=== PATIENT | female | born 1985 | race Caucasian/White ===

== ENCOUNTER 2023-09-22 10:21 | Outpatient (CLI) | payer OTHER, SELFPAY ==
--- NOTE | ~2023-09-22 | MMUS_ITS ---
EXAMINATION: MM diagnostic tanner BI w [place], US breast RT limited HISTORY: Palpable lump in the upper outer quadrant of the right breast. TECHNIQUE: Craniocaudal, mediolateral, and mediolateral oblique 3-D tomosynthesis images of the breas ts were performed and synthetic 2-D images were generated. CAD analysis was submitted and interpreted . High resolution limited right breast ultrasound was performed. COMPARISON: None, baseline BREAST PARENCHYMAL COMPOSITION: There are scattered areas of fibroglandular density. FINDINGS: MAMMOGRAPHIC FINDINGS: No suspicious mass, calcification, or architectural distortion are identified to suggest malignancy. No mammographic correlate is identified for the reported palpable abnormality of concern in the right breast. ULTRASOUND: There is a 4 mm x 2 mm oval, circumscribed, parallel, hypoechoic mass in the skin of the right breast at the 10:00 location, 8 cm from the nipple which appears to demonstrate a tract to the skin surface . IMPRESSION: 1. Findings consistent with sebaceous cyst of the right breast corresponding to the palpable abnormal ity of concern. 2. Recommend routine screening mammography in one year. Continued clinical follow-up is also recommen ded. BI-RADS Category 2: Benign finding(s). Reviewed, dictated and finalized at location A. AL ASSISTANT IMPRESSION: 1. Findings consistent with sebaceous cyst of the right breast corresponding to the palpable abnormality of concern. 2. Recommend routine screening mammography in one year. Continued clinical foll ow-up is also recommended. BI-RADS Category 2: Benign finding(s).
== END 2023-09-22 10:22 | disposition home or self-care (01) ==
PROVIDERS: PCP Nurse Practitioner; Visit Provider Nurse Practitioner Obstetrics & Gynecology
DX: N63.11 Unspecified lump in the right breast, upper outer quadrant (principal)
CPT/HCPCS: 76642; 77062; 77066; G0279

== ENCOUNTER 2025-05-19 10:05 | Outpatient (CLI) | payer OTHER, SELFPAY ==
--- NOTE | ~2025-05-19 | XR_ITS ---
XR nasal bones min 3V 05/19/2025 10:32 Indication: Nose trauma Procedure: 3 views of the nasal bones Comparison: No prior studies for comparison. Findings: There is a nondisplaced fracture distal aspect of the nasal bone. No significant soft tissue abnormality. Orbits intact. Paranasal sinuses are pneumatized. Impression: 1: Nondisplaced nasal fracture. Reviewed, dictated and finalized at location O. Impression: 1: Nondisplaced nasal fracture.
--- OUTSIDE RECORDS SUMMARY | 2025-05-19 10:09 | XMS_ITS | Clinical Summary ---
Author Organization [facility] [employer] Address [address] [place] [address] Care Team Providers Care All Around Gear Machine Operator Name Role Phone KrisNathan DO Primary Care Provider [phone] Source Comments [facility],non-owned Affiliates and Associated Physician Practices is amultiple site organization consisting of ambulatory clinics and hospital sitesin [place], [place], [place] and [place]. This disclosure is being madepursuant to the Care Everywhere program and may not contain all information available regarding this patient. Last updated 18.[facility] [employer] Allergies Active Allergy Reactions Criticality Noted Date Comments Codeine Nausea and/or Vomiting Low 09/26/2014 Gluten Meal Other 02/26/2020 Autoimmune response Medications * Be aware that medications may not be up to date on this document. Alwaysverify current medications with the patient. liothyronine (CYTOMEL) 5 MCG tablet Take 1 (one) tablet by mouth once daily 5 Active levothyroxine (SYNTHROID) 50 MCG tablet Take 1 tablet by mouth daily before breakfast 90 tablet 1 1 Active Loperamide HCl (IMODIUM A-D PO)Indications :11/04 for diarrhea Reasons: 11/04 for diarrhea Active metFORMIN ER 24hr (Glucophage XR) 500 MG tablet 1 (one) tablet 2 times daily Active furosemide (Lasix) 40 MG tabletIndicati ons:swelling face/ hands Take 1 (one) tablet by mouth once daily Reasons: swelling face/ hands 120 tablet 1 2 Active azaTHIOprine (Imuran) 50 MG tabletIndicati ons:Myositis Take 100 mg in AM, 50 mg in PM. Reasons: Myositis 270 tablet 3 2 Active spironolactone (Aldactone) 100 MG tablet Take 1 (one) tablet by mouth once daily 3 Active Multiple Vitamin (MULTI-DAY VITAMINS PO) Take 1 tablet by mouth once daily Active azaTHIOprine (Imuran) 50 MG tabletIndicati ons:Inflammato ry myopathy Take 1 (one) tablet by mouth 2 times daily With food 180 tablet 3 5 Active Semaglutide (Ozempic, 0.25 or 0.5 MG/DOSE,) 2 MG/1.5ML SOPN Inject 2.5 mg subcutaneously every 7 days Active estradiol (Estrace) 0.1 MG/GM vaginal cream INSERT 1 GRAM VAGINALLY EVERY NIGHT FOR 2 WEEKS THEN INSERT VAGINALLY 2 TIMES A WEEK 5 Active benzonatate (Tessalon) 200 MG capsule 4 Active Active Problems Problem Noted Date Diagnosed Date 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 Not able to wean Lasix. Plan: 1. Increase green vegetable intake to 3 servings/daily 2. Continue Lasix right now 1. Supplementing potassium 3. 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 GCT between 26-28 weeks Assessment & Plan (05/01/2020 5:05 PM CDT): We discussed the safety profile of metformin in . Plan 1. GCT between 26-28 weeks Advanced maternal age, primigravida 02/26/2020 Overview (05/29/2020): NOB labs unremarkable--see results console cfDNA low risk--predicted male 1TM anatomy: unremarkable 2TM anatomy: S/p Flu vax Assessment & Plan (05/29/2020 5:42 PM CDT): Flu vaccine given today. At risk for hypertensive disorders of . Plan: 1. Continue aspirin for preeclampsia risk reduction 2. Detailed second trimester anatomy survey at next exam Assessment & Plan (05/01/2020 5:50 PM CDT): At risk for hypertensive disorders of . Plan: 1. Cf DNA aneuploidy screening drawn today 2. Aspirin prescribed 3. 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 IF normal, recheck in 3TM Assessment & Plan (05/01/2020 5:08 PM CDT): Plan 1. 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 On Immuran, and furosemide 40 daily for swelling of hands and feet. Was on spironolactone but stopped in anticipation of . Flare symptoms: tongue swelling, itching all over and a lot of muscle pain. Has been in remission for several years. 03/21/20 CMP: BUN 10/ Cr 0.76/ K 4.4/ ALT 31/ AST 31 ESR 26/ CK 63 / CRP 2 Assessment & Plan (05/01/2020 5:50 PM CDT): Only complaining of swelling. Baseline CMP reassuring. At risk for hypertensive disorders of . Plan 1. Acceptable to stay on azathioprine [Imuran] 2. Previously recommended to wean Lasix 3. Maintain follow up with Rheumatology 4. Serial growth every 4 weeks after 20 weeks 5. Discussed low impact water exercised Obesity 09/19/2014 Overview (06/08/2023): Body mass index (BMI) 31.0-31.9, adult;Recorded Elsewhere: No Location: [facility] Source: EHR Chronic: N Practice ID: [id number] Billable Time: 05:00:00 PM Obesity;Recorded Elsewhere: No Location: [facility] Source: EHR Chronic: N Practice ID: [id number] Billable Time: 03:15:00 PM Assessment & Plan (05/29/2020 5:41 PM CDT): Plan: 1. Encouraged continued exercise 2. 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 06/08/2023 Overview (06/08/2023): Other specified viral warts;Recorded Elsewhere: No Location: [facility] Source: EHR Chronic: N Practice ID: [id number] Billable Time: 03:00:00 PM Abnormal cervical Papanicolaou smear 06/23/2011 06/08/2023 Overview (06/08/2023): Papanicolaou smear of cervix with atypical squamous cells of undetermined significance (ASC-US);Recorded Elsewhere: No Location: [facility] Source: EHR Chronic: N Practice ID: [id number] Billable Time: 03:00:00 PM Other abnormal papanicolaou smear of cervix and cervical HPV;Recorded Elsewhere: No Location: [facility] Source: EHR Chronic: N Practice ID: [id number] Billable Time: 03:00:00 PM History of abnormal cervical Pap smear Overview (05/29/2020): WNL per pt since then ( negative 05/2019 report in media tab) 34 weeks gestation of Gestational diabetes mellitus (GDM) in [facility] Gestational hypertension, antepartum Comments Yes Resolved Problems Problem Noted Date Diagnosed Date Resolved Date BMI 28.0-28.9,adult 03/01/2020 05/01/20 20 Overview (03/01/2020): Lost 80 lb in last 2-3 years on metformin and Trulicity Pre-conception counseling 03/01/2020 Overview (03/01/2020): Multiple medications and medical dx Rheumatoid factor positive 09/26/2014 0 02/26/2020 11 weeks gestation of 06/27/2020 Encounters Date Type Department Care Team Description 05/03/2025 Orders Only [facility] - Rheumatology [address] [place] [phone] Carlos Schreiber MD Inflammatory myopathy; 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 04/26/2025 Orders Only [facility] [address] [place] [phone] Carlos Schreiber MD Inflammatory myopathy; 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 03/27/2025 3:15 PM CDT Office Visit [facility] - Ophthalmology [address] [place] [phone] Theresa Patricia MD Orbital mass (Primary Dx) 03/27/2025 Travel 03/08/2025 Orders Only [facility] - Rheumatology [address] [place] [phone] Carlos Schreiber MD Inflammatory myopathy; 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 (F LUZONE; FLULAVAL; FLUARIX; AFLURIA QUADRIVALENT; 6MO+), 0.5 ML (IIV4) 05/29/2020,06/18/2019,06/05/2018 INFLUENZA VACCINE, TRIV. (FL UZONE; FLULAVAL; FLUARIX; AFLURIA TRIVALENT; 6MO+), 0.5 ML (IIV3) 06/09/2017,05/31/2016 MMR VACCINE 03/12/1992,05/05/1984 POLIO OPV 12/17/1987, 4,1983,1982,1983 TD (AGE 7-ADULT) 01/23/1997 TDAP (7yrs+) 10/27/2020(Deferred: See Comments - pt has taken in ),08/28/2020 TDAP, HISTORIC VACCINE 11/05/2019 iNFLUENZA VACCINE, RECOM-GOMEZ, QUADR. (FLUBLOCK QUADRIVALENT; 18Y+) (RIV4) 05/10/2022 Family History Medical History Relation Name Comments Hypertension Father Hypertension Mother Thyroid Disease Mother Glaucoma Neg Hx Macular Degeneration Neg Hx Relation Name Status Comments Father Alive Mother Alive Social History Tobacco Use Types Packs/Day Years Used Date Smoking Tobacco: Never Smokeless Tobacco: Never Tobacco Cessation:Counseling Given: Not Answered Alcohol Use Standard Drinks/Week Comments Not Currently 0 (1 standard drink = 0.6 oz pur e alcohol) once a month Overall Financial Resource Strain (CARDIA) Answe r Date Recorded How hard is it for you to pa y for the very basics like food, housing, medical care, and heating? Not hard at all 03/31/2020 PHQ-2 Answer Date Recorded Patient Health Questionnaire-2 Score 0 05/09/2023 Hunger Vital Sign Answer Date Recorded Within the past 12 months, y ou worried that your food would run out before you got the money to buy more. Never true 03/31/20 20 Within the past 12 months, t he food you bought just didn't last and you didn't have money to get more. Never true 03/31/2020 PRAPARE - Transportation Answer Date Re corded In the past 12 months, has l ack of transportation kept you from medical appointments or from getting medications? No 10/2019 In the past 12 months, has l ack of transportation kept you from meetings, work, or from getting things needed for daily living? No 03/31/2020 Education Answer Date Recorded What is the highest level of school you have completed or the highest degree you have received? 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 [employer] Not on file Not on file Not on file Last Filed Vital Signs Vital Sign Reading Time Taken Comments Blood Pressure 111/81 11/20/2024 12:56 PM CDT Pulse 84 11/20/2024 12:56 PM CDT Temperature 36.7 C (98 F) 11/20/2024 12:56 PM CDT Respiratory Rate 20 05/22/2022 9:32 AM CDT Oxygen Saturation 98% 11/20/2024 12:56 PM CDT Inhaled Oxygen Concentration - - Weight 81 kg (178 lb 9.6 oz) 11/20/2024 12:56 PM CDT Height 172.7 cm (5' 8) 11/20/2024 12:56 PM CDT Body Mass Index 27.16 11/20/2024 12:56 PM CDT Plan of Treatment Upcoming Encounters Date Type Department Care Team (Late st Contact Info) Description 07/15/2025 2:40 PM CHILD CARE NURSE Office Visit [facility] - Rheumatology [address] [place] [phone] Carlos Schreiber MD [address] [place] [address] [place] [phone] 03/26/2026 1:30 PM CDT Office Visit [facility] - Ophthalmology [address] [place] [phone] Theresa Patricia MD [address] [place] [address] [place] [phone] Health Maintenance Due Date Last Done Comments LIPID TESTING 1983 MAMMOGRAM 1983 PNEUMOCOCCAL VACCINE (1 of 2 - PCV) 2002 ZOSTER VACCINE (1 of 2) 2002 HPV VACCINE (1 - 3-dose SCDM series) 2010 HEPATITIS B VACCINE (3 of 3 - 19+ 3-dose series) 2022 12/07/2021, 11/05/2019 DEPRESSION SCREENING 08/29/2024 11/08/2022, 05/10/20 22 COVID-19 VACCINE (3 - season) 2025 11/25/2021, 12/06/2020 INFLUENZA VACCINE (#1) 2025 , 05/29/2020, 06/18/2019, Additional history exists PAP SMEAR 02/14/2028 02/13/2025, 01/27, 11/11/2021, Additional history exists SCREENING FOR DIABETES 04/27/2028 , 02/28/2025, 01/08/2025, Additional history exists DTAP/TDAP/TD VACCINES (9 - Td or Tdap) 08/28/2030 08/28/2020, 11/05/2019, 01/23/1997, Additional history exists Respiratory Syncytial Virus (RSV) Vaccine Pt: or over 60 yrs (1 - 1-dose 75+ series) 2058 HEPATITIS C SCREENING Completed 09/26/2014 HIV SCREENING Completed 03/31/2020 HIB VACCINE Aged Out No longer eligi ble based on patient's age to complete this topic MENINGOCOCCAL (Group B) VACCINE SHARED DECISION-MAKING Aged Out No longer eligible based on patient's age to complete this topic MENINGOCOCCAL GROUPS A/C/Y/W VACCINE Aged Out No longer eligible based on patient's age to complete this topic Goals Goal Patient Goal Type Associated Problems Recent Progress Patient-Stated? Author Medication Management General On track( 018 10:21 AM CDT) Helen Gu, RN Note: Expected end date: ongoing Interventions: Take all medications as prescribed Let your doctor know right away about any changes in your medications Make sure to request a refill of your medication at least one week prior to your last dose Procedures Procedure Name Priority Date/Time Associated Diagnosis Comments URINALYSIS W/MICROSCOPIC REFLEX TO CULTURE Routine 04/27/2025 8:54 AM CDT 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 ERYTHROCYTE SEDIMENTATION RATE Routine 04/27/2025 8:54 AM CDT 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 C-REACTIVE PROTEIN Routine 04/27/2025 8: 54 AM CDT 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 COMPREHENSIVE METABOLIC PANEL Routine 04/27/2025 8:54 AM CDT 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 CK BLOOD Routine 04/27/2025 8:54 AM CDT 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 CBC W AUTO DIFFERENTIAL Routine 04/27/2025 8:54 AM CDT 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 ALDOLASE Routine 04/27/2025 8:54 AM CDT 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 LDH BLOOD Routine 04/27/2025 8:53 AM CDT 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 ALDOLASE Routine 04/27/2025 8:53 AM CDT 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 URINALYSIS W/MICROSCOPIC REFLEX TO CULTURE Routine 02/28/2025 9:33 AM CDT ERYTHROCYTE SEDIMENTATION RATE Routine 02/28/2025 9:33 AM CDT 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 C-REACTIVE PROTEIN Routine 02/28/2025 9: 33 AM CDT 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 COMPREHENSIVE METABOLIC PANEL Routine 02/28/2025 9:33 AM CDT 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 CK BLOOD Routine 02/28/2025 9:33 AM CDT 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 CBC W AUTO DIFFERENTIAL Routine 02/28/2025 9:33 AM CDT 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 LDH BLOOD Routine 02/28/2025 9:33 AM CDT 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 ALDOLASE Routine 02/28/2025 9:33 AM CDT 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 CULTURE STREP B Routine 10/20/2020 4:06 PM CHILD CARE NURSE NST (non-stress test) nonreactive GTT 1 HR (50G) GESTATIONAL SCREEN Routine 08/14/2020 Current maternal condition affecting Screening for diabetes mellitus (DM) HIV-1 HIV-2 ANTIBODY + HIV P24 AG PANEL Routine 03/31/2020 3:39 PM CDT Supervision of high risk in first trimester HEPATITIS C ANTIBODY Routine 09/26/2014 12:11 PM CHILD CARE NURSE from Last 3 Months or Most Recently Relevant to Health Maintenance Results * URINALYSIS W/MICROSCOPIC REFLEX TO CULTURE (04/27/2025 8:54 AM CDT) Only the most recent of2 resultswithin the time period is included. Specific [place] UA 1.018 1.005 - 1.030 [facility] INSURANCE BILL pH UA 6.5 5.0 - 7.5 [facility] INSURANCE BILL Color UA Yellow Yellow [facility] INSURANCE BILL Appearance Clear Clear [facility] INSURANCE BILL Leukocyte UA Negative Negative [facility] INSURANCE BILL Protein UA Negative Negative/Tra ce [facility] INSURANCE BILL Glucose UA Negative Negative [facility] INSURANCE BILL Ketone UA Negative Negative [facility] INSURANCE BILL Occult Blood Urine Negative Negative [facility] INSURANCE BILL Bilirubin UA Negative Negative [facility] INSURANCE BILL Urobilinogen 0.2 0.2 - 1.0 mg/dL [facility] INSURANCE BILL Nitrite UA Negative Negative [facility] INSURANCE BILL Microscopic Examination Urine Comment [facility] INSURANCE BILL Comment:Microscopic follows if indicated. Microscopic Examination Urine See below: [facility] INSURANCE BILL Comment:Microscopic was hank cated and was performed. Urinalysis Reflex Comment [facility] INSURANCE BILL Comment: This specimen will not reflex to a Urine Culture. Performed at: [facility] [id number] Waste/Materials Exchange Specialist: Oscar Hill PhD, Phone: [phone] WBC UA None seen 0 - 5 /hpf [facility] INSURANCE BILL RBC UA 0-2 0 - 2 /hpf [facility] INSURANCE BILL Epithelial Cells (non renal) None seen 0 - 10 /hpf [facility] INSURANCE BILL Casts ua None seen None seen /lpf [facility] INSURANCE BILL Bacteria UA None seen None seen/Few [facility] INSURANCE BILL Urine URINE SPECIMEN OBTAINED BY CLEAN CATCH PROCEDURE / Unknown 04/27/2025 8:54 AM CDT 04/27/2025 Narrative [facility] INSURANCE BILL - 04/28/2025 7:08 AM CDT Performed at: [address] [place] [id number] Waste/Materials Exchange Specialist: Oscar Hill PhD, Phone: [phone] us Carlos Schreiber MD LAB - URINALYSIS ORDERABLES Francia l Result Performing Organization Address [facility] Co de Phone Number [facility] INSURANCE BILL [address] [place] [phone] * C-REACTIVE PROTEIN (04/27/2025 8:54 AM CDT) Only the most recent of2 resultswithin the time period is included. C-Reactive Protein <1 0 - 10 mg/L [facility] INSURANCE BILL Blood BLOOD SPECIMEN / Unknown 04/27/2025 8:54 AM CDT 04/27/2025 Narrative [facility] INSURANCE BILL - 04/28/2025 9:09 AM CDT Performed at: [address] [place] [id number] Waste/Materials Exchange Specialist: Oscar Hill PhD, Phone: [phone] us Carlos Schreiber MD LAB - CHEMISTRY ORDERABLES Final Result Performing Organization Address [facility] de Phone Number [facility] INSURANCE BILL [address] [place] [phone] * ALDOLASE (04/27/2025 8:54 AM CDT) Only the most recent of3 resultswithin the time period is included. Aldolase 3.7 3.3 - 10.3 U/L [facility] INSURANCE BILL Blood BLOOD SPECIMEN / Unknown 04/27/2025 8:54 AM CDT 04/27/2025 Narrative [facility] INSURANCE BILL - 04/30/2025 3:09 PM CDT Performed at: [address] [place], [place] [id number] [place] [id number] Waste/Materials Exchange Specialist: Oscar Hill PhD, Phone: [phone] Carlos Schreiber MD LAB - CHEMISTRY ORDERABLES Final Result Performing Organization Address [facility] de Phone Number [facility] INSURANCE BILL [address] [place] [address] * ERYTHROCYTE SEDIMENTATION RATE (04/27/2025 8:54 AM CDT) Only the most recent of2 resultswithin the time period is included. Erythrocyte Sedimentation Rate Westergren 5 0 - 32 mm/hr [facility] INSURANCE BILL Blood BLOOD SPECIMEN / Unknown 04/27/2025 8:54 AM CDT 04/27/2025 Narrative [facility] INSURANCE BILL - 04/28/2025 7:08 AM CDT Performed at: - [facility] [id number] Waste/Materials Exchange Specialist: Oscar Hill PhD, Phone: [phone] Carlos Schreiber MD LAB - HEMATOLOGY ORDERABLES Francia l Result Performing Organization Address [facility] de Phone Number [facility] INSURANCE BILL [address] [place] [address] * CBC WITH DIFFERENTIAL (04/27/2025 8:54 AM CDT) Only the most recent of2 resultswithin the time period is included. WBC 7.0 3.4 - 10.8 x10E3/uL [facility] INSURANCE BILL RBC 4.39 3.77 - 5.28 x10E6/uL [facility] INSURANCE BILL Hemoglobin 13.4 11.1 - 15.9 g/dL [facility] INSURANCE BILL Hematocrit 41.5 34.0 - 46.6 % [facility] INSURANCE BILL MCV 95 79 - 97 fL [facility] INSURANCE BILL MCH 30.5 26.6 - 33.0 pg [facility] INSURANCE BILL MCHC 32.3 31.5 - 35.7 g/dL [facility] INSURANCE BILL RDW 13.1 11.7 - 15.4 % [facility] INSURANCE BILL Platelet Count 289 150 - 450 x10E3/uL [facility] INSURANCE BILL Granulocytes % 71 Not Estab. % [facility] INSURANCE BILL Lymphocytes % 20 Not Estab. % [facility]UR[facility] BILL Monocytes % 8 Not Estab. % [facility] INSURANCE BILL Eosinophils % 1 Not Estab. % [facility] INSURANCE BILL Basophils % 0 Not Estab. % [facility] INSURANCE BILL Granulocytes Absolute 4.9 1.4 - 7.0 x10E3/uL [facility] INSURANCE BILL Lymphocytes Absolute 1.4 0.7 - 3.1 x10E3/uL [facility] INSURANCE BILL Monocytes Absolute 0.6 0.1 - 0.9 x10E3/uL [facility] INSURANCE BILL Eosinophils Absolute 0.1 0.0 - 0.4 x10E3/uL [facility] INSURANCE BILL Basophils Absolute 0.0 0.0 - 0.2 x10E3/uL [facility] INSURANCE BILL Immature Granulocytes 0 Not Estab. % [facility] INSURANCE BILL Immature Granulocytes Absolute 0.0 0.0 - 0.1 x10E3/uL [facility] INSURANCE BILL Blood BLOOD SPECIMEN / Unknown 04/27/2025 8:54 AM CDT 04/27/2025 Narrative [facility] INSURANCE BILL - 04/28/2025 7:08 AM CDT Performed at: 01 - [facility] [address] [place], [place] [id number] Waste/Materials Exchange Specialist: Oscar Hill PhD, Phone: [phone] Carlos Schreiber MD LAB - HEMATOLOGY ORDERABLES Francia l Result [facility] INSURANCE BILL [address] [place] [address] * COMPREHENSIVE METABOLIC PANEL (04/27/2025 8:54 AM CDT) Only the most recent of2 resultswithin the time period is included. [facility] Signature Glucose 80 70 - 99 mg/dL [facility] INSURANCE BILL BUN 13 6 - 24 mg/dL [facility] INSURANCE BILL Creatinine 0.85 0.57 - 1.00 mg/dL [facility] INSURANCE BILL eGFR by CKD-EPI 88 >59 mL/min/1.7 3 [facility] INSURANCE BILL BUN/Creatinine Ratio 15 9 - 23 [facility] INSURANCE BILL Sodium 139 134 - 144 mmol/L [facility] INSURANCE BILL Potassium 4.1 3.5 - 5.2 mmol/L [facility] INSURANCE BILL Chloride 101 96 - 106 mmol/L [facility] INSURANCE BILL CO2 25 20 - 29 mmol/L [facility] INSURANCE BILL Calcium 8.9 8.7 - 10.2 mg/dL [facility] INSURANCE BILL Protein Total 7.1 6.0 - 8.5 g/dL [facility] INSURANCE BILL Albumin 4.8 3.9 - 4.9 g/dL [facility] INSURANCE BILL Globulin Total 2.3 1.5 - 4.5 g/dL [facility] INSURANCE BILL Bilirubin Total 0.6 0.0 - 1.2 mg/dL [facility] INSURANCE BILL Alkaline Phosphatase 65 44 - 121 IU/L [facility] INSURANCE BILL Comment: Effective May 13, 2025 Alkaline Phosphatase reference interval will be changing to: Age Male Female 0 - 5 days 47 - 127 47 - 127 6 - 10 days 29 - 242 29 - 242 11 - 20 days 109 - 357 109 - 357 21 - 30 days 94 - 494 94 - 494 1 - 2 months 149 - 539 149 - 539 3 - 6 months 131 - 452 131 - 452 7 - 11 months 117 - 401 117 - 401 12 months - 6 years 158 - 369 158 - 369 7 - 12 years 150 - 409 150 - 409 13 years 156 - 435 78 - 227 14 years 114 - 375 64 - 161 15 years 88 - 279 56 - 134 16 years 74 - 207 51 - 121 17 years 63 - 161 47 - 113 18 - 20 years 51 - 125 42 - 106 21 - 50 years 47 - 123 41 - 116 51 - 80 years 49 - 135 51 - 125 >80 years 48 - 129 48 - 129 AST 18 0 - 40 IU/L [facility] INSURANCE BILL ALT 11 0 - 32 IU/L [facility] INSURANCE BILL Blood BLOOD SPECIMEN / Unknown 04/27/2025 8:54 AM CDT 04/27/2025 Narrative [facility] INSURANCE BILL - 04/28/2025 9:09 AM CDT Performed at: 01 - [email or web address] [address] [id number] Waste/Materials Exchange Specialist: Oscar Hill PhD, Phone: [phone] Carlos Schreiber MD LAB - CHEMISTRY ORDERABLES Final Result Performing Organization Address City/State/[facility] Co de Phone Number [facility] INSURANCE BILL [address] [place] [address] * CK BLOOD (04/27/2025 8:54 AM CDT) Only the most recent of2 resultswithin the time period is included. CK 69 32 - 182 U/L [facility] INSURANCE BILL Blood BLOOD SPECIMEN / Unknown 04/27/2025 8:54 AM CDT 04/27/2025 Narrative [facility] INSURANCE BILL - 04/28/2025 9:09 AM CDT Performed at: [address] [id number] Waste/Materials Exchange Specialist: Oscar Hill PhD, Phone: [phone] us Carlos Schreiber MD LAB - CHEMISTRY ORDERABLES Final Result Performing Organization Address [facility] de Phone Number [facility] INSURANCE BILL [address] [place] [address] * LDH BLOOD (04/27/2025 8:53 AM CDT) Only the most recent of2 resultswithin the time period is included. LDH 167 119 - 226 IU/L [facility] INSURANCE BILL Blood BLOOD SPECIMEN / Unknown 04/27/2025 8:53 AM CDT 04/27/2025 Narrative [facility] INSURANCE BILL - 04/28/2025 7:08 AM CDT Performed at: [email or web address] [id number] Waste/Materials Exchange Specialist: Oscar Hill PhD, Phone: [phone] us Carlos Schreiber MD LAB - CHEMISTRY ORDERABLES Final Result Performing Organization Address [facility] de Phone Number [facility] INSURANCE BILL [address] [place] [address] * CULTURE STREP B (10/20/2020 4:06 PM CHILD CARE NURSE) Culture Strep B Negative for beta-hemolytic Streptococcus Group B ARELI 10/24/2020 10:35 AM CHILD CARE NURSE [facility] MICROBIOLOGY Microbiology MISCELLANEOUS SAMPLES / Unknown Collection / Unknown 10/20/2020 4:06 PM CHILD CARE NURSE 10/20/2020 4:25 PM CHILD CARE NURSE Alok North MD LAB - MICROBIOLOGY ORDERABLES Final Result [facility] MICROBIOLOGY [address] [place] [address], [facility] [phone] * (ABNORMAL) GTT 1 HR (50G) GESTATIONAL SCREEN (08/14/2020) Pathologist [facility] Glucose Gestational Screen 180(H) <140 mg/dL [facility] Comment: One hour value of > or = 140 mg/dL indicates the need for a diagnostic 75 g dose 2-hour or 100 g dose 3-hour oral glucose tolerance test; patient fasting is required. Test Performed at: [facility] [address] [place] [address] LAURY MEJIA DO,MPH Blood BLOOD SPECIMEN / Unknown 08/14/2020 08/14/2020 1:20 PM CHILD CARE NURSE Alok North MD LAB - CHEMISTRY ORDERABLES Fin al Result Performing Organization Address City/[facility]/ZIP Co de Phone Number [facility] [address] [place] [address] * HIV-1 HIV-2 ANTIBODY + HIV P24 AG PANEL (03/31/2020 3:39 PM CDT) [facility] HIV Screen 4th Generation w Reflex NON-REACT DEYVI NON-REACT DEYVI [facility] Comment: HIV-1 antigen and HIV-1/HIV-2 antibodies were not detected. There is no laboratory evidence of HIV infection. PLEASE NOTE: This information has been disclosed to you from records whose confidentiality may be protected by state law. If your state requires such protection, then the state law prohibits you from making any further disclosure of the information without the specific written consent of the person to whom it pertains, or as otherwise permitted by law. A general authorization for the release of medical or other information is NOT sufficient for this purpose. For additional information please refer to http://education.Toodalu/faq/ZBL528 (This link is being provided for informational/ educational purposes only.) The performance of this assay has not been clinically validated in patients less than 2 years old. REPORT COMMENT: FASTING:NO Test Performed at: [facility] [employer] [place] [address] [address] [address] LAURY MEJIA DO,MPH Blood BLOOD SPECIMEN / Unknown 03/31/2020 3:39 PM CDT 03/31/2020 3:40 PM CDT Memo Membreno MD LAB - CHEMISTRY ORDERABLES Fi nal Result Performing Organization Address City/[facility]/ZIP Co de Phone Number [employer] [address] [place] [address] * HEPATITIS C ANTIBODY (09/26/2014 12:11 PM CHILD CARE NURSE) [facility] Hepatitis C Virus Antibody 0.2 0.0 - 0.9 s/co ratio [facility] Comment: Negative: < 0.8 Indeterminate: 0.8 - 0.9 Positive: > 0.9 In order to reduce the incidence of a false positive result, the CDC recommends that all s/co ratios between 1.0 and 10.9 be confirmed by a more specific supplemental or PCR testing. [facility] offers HCV Ab w/Reflex to Verification test #[id number]. Blood specimen (specimen) BLOOD SPECIMEN / Unknown 09/26/2014 12:11 PM CHILD CARE NURSE 09/26/2014 6:14 PM CHILD CARE NURSE N[facility]ative [facility] - 10/01/2014 3:21 PM CHILD CARE NURSE Performed at: [address] [place] [address] [address] [place], [place] [id number] Waste/Materials Exchange Specialist: Franklyn Meyers PhD, Phone: [phone] Carlos Schreiber MD LAB - CHEMISTRY ORDERABLES Edite d Result - Final Performing Organization Address City/[facility] Co de Phone Number [facility]) [address] [place] [address], [facility] from Last 3 Months or Most Recently Relevant to Health Maintenance Insurance [place] [address] [facility] [place] [id number] Advance Directives * Full Code (Latest Code Status on File) Date Activated Date Inactivated Comments 10/26/2020 3:59 AM 10/30/2020 2:44 PM * Full Code Date Activated Date Inactivated Comments 10/24/2020 12:31 PM 10/26/2020 3:59 AM Care Teams All Around Gear Machine Operator Relationship Specialty Start Date End Date Nathan Ponce DO [address] [place] [address] PCP - General 01/28/20
== END 2025-05-19 10:06 | disposition home or self-care (01) ==
LOC: ANHIMG 10:07
PROVIDERS: PCP Nurse Practitioner; Visit Provider Nurse Practitioner
DX: S06.89AA Other specified intracranial injury with loss of consciousness status unknown, initial encounter (principal); X58.XXXA Exposure to other specified factors, initial encounter
CPT/HCPCS: 70160

== ENCOUNTER 2025-07-04 16:10 | Outpatient (CLI) | payer OTHER, SELFPAY ==
--- NOTE | ~2025-07-04 | MM_ITS ---
EXAMINATION: screening [facility] BI w [place] INDICATION: Asymptomatic, referred for screening mammogram COMPARISON: 09/22/2023 TECHNIQUE: Digital Breast Tomosynthesis CC, MLO views of Both breasts were obtained with computer-aided detection to assist in interpretation of the study. FINDINGS: There are scattered areas of fibroglandular density. There is a superficial asymmetry seen on the MLO view in the Superior right breast at middle third. Elsewhere, there are no mammographic features of malignancy. IMPRESSION: 1. Right breast Asymmetry. 2. No evidence of malignancy in the Left breast. RECOMMENDATION: Right breast Diagnostic mammogram with true lateral, appropriate spot compression views and an ultrasound if needed. BI-RADS Category 0: Incomplete: Needs additional imaging evaluation. Reviewed, dictated and finalized at location B. CTOR OF OPERATIONS FOR THERAPY IMPRESSION: 1. Right breast Asymmetry. 2. No evidence of malignancy in the Left breast. RECOMMENDATION: Right breast Diagnostic mammogram with true lateral, appropriate spot compressi on views and an ultrasound if needed. BI-RADS Category 0: Incomplete: Needs additional imaging evaluation.
--- OUTSIDE RECORDS SUMMARY | 2025-07-04 21:05 | XMS_ITS | Clinical Summary ---
Author Organization [facility] [employer] Address [address] [place] [address] Care Team Providers Care Die Presser Name Role Phone KrisNathan DO Primary Care Provider [phone] Source Comments [facility],non-owned Affiliates and Associated Physician Practices is amultiple site organization consisting of ambulatory clinics and hospital sitesin [place], [place], [place] and [place]. This disclosure is being madepursuant to the Care Everywhere program and may not contain all information available regarding this patient. Last updated 18.[facility] [employer] Allergies Active Allergy Reactions Criticality Noted Date [...] 1. Supplementing potassium 3. 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 Encouraged continued exercise 2. 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 06/08/2023 Overview (06/08/2023): Other specified viral warts;Recorded Elsewhere: No Location: [facility] Source: EHR Chronic: N Practice ID: [id number] Billable Time: 03:00:00 PM Abnormal cervical Papanicolaou smear 06/23/2011 06/08/2023 Overview (06/08/2023): Papanicolaou smear of cervix with atypical squamous cells of undetermined significance (ASC-US);Recorded Elsewhere: No Location: [facility] Source: EHR Chronic: N Practice ID: [id number] Billable Time: 03:00:00 PM Other abnormal papanicolaou smear of cervix and cervical HPV;Recorded Elsewhere: No Location: [facility] Source: EHR Chronic: N Practice ID: [id number] Billable Time: 03:00:00 PM History of abnormal cervical Pap smear Overview (05/29/2020): WNL per pt since then ( negative 05/2019 report in media tab) 34 weeks gestation of Gestational diabetes mellitus (GDM) in third [facility] Gestational hypertension, antepartum Comments Yes Resolved Problems Problem Noted Date Diagnosed Date Resolved Date BMI 28.0-28.9,adult 03/01/2020 05/01/20 20 Overview (03/01/2020): Lost 80 lb in last 2-3 years on metformin and Trulicity Pre-conception counseling 03/01/2020 Overview (03/01/2020): Multiple medications and medical dx Rheumatoid factor positive 09/26/2014 0 02/26/2020 11 weeks gestation of 06/27/2020 Encounters Date Type Department Care Team Description 06/28/2025 Orders Only [facility] - [facility]ology [address], [place] [address] Carlos Schreiber MD Inflammatory myopathy; 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 06/21/2025 Orders Only [facility]umatology [address] [place] [phone] Carlos Schreiber MD Inflammatory myopathy; 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 05/03/2025 Orders Only [facility] - Rhe[facility]ology [address] [place] [phone] Carlos Schreiber MD Inflammatory myopathy; 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 04/26/2025 Orders Only [facility] [address] [place] [phone] Carlos Schreiber MD Inflammatory myopathy; Encounter for [...] Master's degree (e.g., MA, MS, Edmond, MEd, AUTO INSPECTOR, KARLA) 03/31/2020 Comments Yes Sex and Gender Information Value Date Recorded Sex Assigned at Not on file Legal Sex Female 5:36 AM PIPE PULLER Gender Identity Not on file Sexual Orientation Not on file 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 [employer] Not on file Not on file Not [...] st Contact Info) Description 07/15/2025 2:40 PM PIPE PULLER Office Visit [facility] - Rheumatology [address] [place] [phone] Carlos Schreiber MD [address] [place] [address] [place] [address] 03/26/2026 1:30 PM CDT Office Visit [facility] - Ophthalmology [address] [place] [address], [place] [address] Theresa Patricia MD [address] [place] [address] [place] [address] Health Maintenance Due Date Last Done Comments LIPID TESTING 1983 MAMMOGRAM 1983 PNEUMOCOCCAL VACCINE (1 of 2 - PCV) 2002 ZOSTER VACCINE (1 of 2) 2002 HPV VACCINE (1 - 3-dose SCDM series) 2010 HEPATITIS B VACCINE (3 of 3 - 19+ 3-dose series) 2022 12/07/2021, 11/05/2019 DEPRESSION SCREENING 08/29/2024 11/08/2022, 05/10/20 COVID-19 VACCINE (3 - 2024- season) 2025 11/25/2021, 12/06/2020 INFLUENZA VACCINE (#1) 2025 , 05/29/2020, 06/18/2019, Additional history exists PAP SMEAR 02/14/2028 02/13/2025, 01/27, 11/11/2021, Additional history exists SCREENING FOR DIABETES 06/25/2028 , 04/27/2025, 02/28/2025, Additional history exists DTAP/TDAP/TD VACCINES (9 - [...] Comments URINALYSIS W/MICROSCOPIC REFLEX TO CULTURE Routine 06/25/2025 9:22 AM CDT 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 ERYTHROCYTE SEDIMENTATION RATE Routine 06/25/2025 9:22 AM CDT 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 C-REACTIVE PROTEIN Routine 06/25/2025 9: 22 AM CDT 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 COMPREHENSIVE METABOLIC PANEL Routine 06/25/2025 9:22 AM CDT 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 CK BLOOD Routine 06/25/2025 9:22 AM CDT 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 CBC W AUTO DIFFERENTIAL Routine 06/25/2025 9:22 AM CDT 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 ALDOLASE Routine 06/25/2025 9:22 AM CDT 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 URINALYSIS W/MICROSCOPIC REFLEX TO CULTURE Routine 04/27/2025 [...] CULTURE STREP B Routine 10/20/2020 4:06 PM PIPE PULLER NST (non-stress test) nonreactive GTT 1 HR (50G) GESTATIONAL SCREEN Routine 08/14/2020 Current maternal condition affecting Screening for diabetes mellitus (DM) HIV-1 HIV-2 ANTIBODY + HIV P24 AG PANEL Routine 03/31/2020 3:39 PM CDT Supervision of high risk in first trimester HEPATITIS C ANTIBODY Routine 09/26/2014 12:11 PM PIPE PULLER from Last 3 Months or Most Recently Relevant to Health Maintenance Results * (ABNORMAL) URINALYSIS W/MICROSCOPIC REFLEX TO CULTURE (06/25/2025 9:22 AM CDT) Only the most recent of2 resultswithin the time period is included. Specific [place] UA 1.009 1.005 - 1.030 [facility] INSURANCE BILL pH UA 8.0(H) 5.0 - 7.5 [facility] INSURANCE BILL Color [...] reflex to a Urine Culture. Performed at: [facility] [address] [id number] Workers Compensation Legal Secretary: Oscar Hill PhD, Phone: [phone] WBC UA None seen 0 - 5 /hpf [facility] INSURANCE BILL RBC UA None seen 0 - 2 /hpf [facility] INSURANCE BILL Epithelial Cells (non renal) None seen 0 - 10 /hpf [facility] INSURANCE BILL Casts ua None seen None seen /lpf [facility] INSURANCE BILL Bacteria UA None seen None seen/Few [facility] INSURANCE BILL Urine URINE SPECIMEN OBTAINED BY CLEAN CATCH PROCEDURE / Unknown 06/25/2025 9:22 AM CDT 06/25/2025 Narrative [facility] INSURANCE BILL - 06/26/2025 7:09 AM CDT Performed at: [facility] [address] [id number] Workers Compensation Legal Secretary: Oscar Hill PhD, Phone: [phone] us Carlos Schreiber MD LAB - URINALYSIS ORDERABLES Francia l Result [facility] INSURANCE BILL [address] [place] [address] * C-REACTIVE PROTEIN (06/25/2025 9:22 AM CDT) Only the most recent of2 resultswithin the time period is included. C-Reactive Protein <1 0 - 10 mg/L [facility] INSURANCE BILL Blood BLOOD SPECIMEN / Unknown 06/25/2025 9:22 AM CDT 06/25/2025 Narrative [facility] INSURANCE BILL - 06/26/2025 9:11 AM CDT Performed at: [address] [place] [id number] Workers Compensation Legal Secretary: Oscar Hill PhD, Phone: [phone] us Carlos Schreiber MD LAB - CHEMISTRY ORDERABLES Final Result Performing Organization Address [facility] Co de Phone Number [facility] INSURANCE BILL [address] [place] [address] * ALDOLASE (06/25/2025 9:22 AM CDT) Only the most recent of3 resultswithin the time period is included. Aldolase 3.8 3.3 - 10.3 U/L [facility] INSURANCE BILL Blood BLOOD SPECIMEN / Unknown 06/25/2025 9:22 AM CDT 06/25/2025 Narrative [facility] INSURANCE BILL - 06/26/2025 1:10 PM CDT Performed at: [address] [place] [id number] Workers Compensation Legal Secretary: Oscar Hill PhD, Phone: [phone] us Carlos Schreiber MD LAB - CHEMISTRY ORDERABLES Final Result Performing Organization Address City/[facility]/ZIP Co de Phone Number [facility] INSURANCE BILL [address] [place] [address] * ERYTHROCYTE SEDIMENTATION RATE (06/25/2025 9:22 AM CDT) Only the most recent of2 resultswithin the time period is included. Erythrocyte Sedimentation Rate Westergren 5 0 - 32 mm/hr [facility] INSURANCE BILL Blood BLOOD SPECIMEN / Unknown 06/25/2025 9:22 AM CDT 06/25/2025 Narrative [facility] INSURANCE BILL - 06/26/2025 7:09 AM CDT Performed at: [facility] - [facility] [address] [place], [place] [id number] Workers Compensation Legal Secretary: Oscar Hill PhD, Phone: [phone] Carlos Schreiber MD LAB - HEMATOLOGY ORDERABLES Francia linder Result [facility] INSURANCE BILL [address] [place] [address] * CBC WITH DIFFERENTIAL (06/25/2025 9:22 AM CDT) Only the most recent of2 resultswithin the time period is included. Pathologist [facility] WBC 6.7 3.4 - 10.8 x10E3/uL [facility] INSURANCE BILL RBC 5.07 3.77 - 5.28 x10E6/uL [facility] INSURANCE BILL Hemoglobin 15.5 11.1 - 15.9 g/dL [facility] INSURANCE BILL Hematocrit 46.3 34.0 - 46.6 % [facility] INSURANCE BILL MCV 91 79 - 97 fL [facility] INSURANCE BILL MCH 30.6 26.6 - 33.0 pg [facility] INSURANCE BILL MCHC 33.5 31.5 - 35.7 g/dL [facility] INSURANCE BILL RDW 13.0 11.7 - 15.4 % [facility] INSURANCE BILL Platelet Count 353 150 - 450 x10E3/uL [facility] INSURANCE BILL Granulocytes % 72 Not Estab. % [facility] INSURANCE BILL Lymphocytes % 21 Not Estab. % [facility] INSURANCE BILL Monocytes % 6 Not Estab. % [facility] INSURANCE BILL Eosinophils % 1 Not Estab. % [facility] INSURANCE BILL Basophils % 0 Not Estab. % [facility] INSURANCE BILL Granulocytes Absolute 4.8 1.4 - 7.0 x10E3/uL [facility] INSURANCE BILL Lymphocytes Absolute 1.4 0.7 - 3.1 x10E3/uL [facility] INSURANCE BILL Monocytes Absolute 0.4 0.1 - 0.9 x10E3/uL [facility] INSURANCE BILL Eosinophils Absolute 0.1 0.0 - 0.4 x10E3/uL [facility] INSURANCE BILL Basophils Absolute 0.0 0.0 - 0.2 x10E3/uL [facility] INSURANCE BILL Immature Granulocytes 0 Not Estab. % [facility] INSURANCE BILL Immature Granulocytes Absolute 0.0 0.0 - 0.1 x10E3/uL [facility] INSURANCE BILL Blood BLOOD SPECIMEN / Unknown 06/25/2025 9:22 AM CDT 06/25/2025 Narrative [facility] INSURANCE BILL - 06/26/2025 7:09 AM CDT Performed at: [address] [id number] Workers Compensation Legal Secretary: Oscar Hill PhD, Phone: [phone] Carlos Schreiber MD LAB - HEMATOLOGY ORDERABLES Francia linder Result [facility] INSURANCE BILL [address] [place] [address] * (ABNORMAL) COMPREHENSIVE METABOLIC PANEL (06/25/2025 9:22 AM CDT) Only the most recent of2 resultswithin the time period is included. [facility] Glucose 84 70 - 99 mg/dL [facility] INSURANCE BILL BUN 10 6 - 24 mg/dL [facility] INSURANCE BILL Creatinine 0.89 0.57 - 1.00 mg/dL [facility] INSURANCE BILL eGFR by CKD-EPI 83 >59 mL/min/1.7 3 [facility] INSURANCE BILL BUN/Creatinine Ratio 11 9 - 23 [facility] INSURANCE BILL Sodium 139 134 - 144 mmol/L [facility] INSURANCE BILL Potassium 4.4 3.5 - 5.2 mmol/L [facility] INSURANCE BILL Chloride 95(L) 96 - 106 mmol/L [facility] INSURANCE BILL CO2 27 20 - 29 mmol/L [facility] INSURANCE BILL Calcium 9.5 8.7 - 10.2 mg/dL [facility] INSURANCE BILL Protein Total 8.1 6.0 - 8.5 g/dL [facility] INSURANCE BILL Albumin 5.5(H) 3.9 - 4.9 g/dL [facility] INSURANCE BILL Globulin Total 2.6 1.5 - 4.5 g/dL [facility] INSURANCE BILL Bilirubin Total 0.7 0.0 - 1.2 mg/dL [facility] INSURANCE BILL Alkaline Phosphatase 74 41 - 116 IU/L [facility] INSURANCE BILL AST 23 0 - 40 IU/L [facility] INSURANCE BILL ALT 11 0 - 32 IU/L [facility] INSURANCE BILL Blood BLOOD SPECIMEN / Unknown 06/25/2025 9:22 AM CDT 06/25/2025 Narrative [facility] INSURANCE BILL - 06/26/2025 7:09 AM CDT Performed at: [address] [id number] Workers Compensation Legal Secretary: Oscar Hill PhD, Phone: [phone] us Carlos Schreiber MD LAB - CHEMISTRY ORDERABLES Final Result Performing Organization Address City/[facility] de Phone Number [facility] INSURANCE BILL [address] [place] [address] * CK BLOOD (06/25/2025 9:22 AM CDT) Only the most recent of2 resultswithin the time period is included. CK 66 32 - 182 U/L [facility] INSURANCE BILL Blood BLOOD SPECIMEN / Unknown 06/25/2025 9:22 AM CDT 06/25/2025 Narrative [facility] INSURANCE BILL - 06/26/2025 7:09 AM CDT Performed at: [address] [id number] Workers Compensation Legal Secretary: Oscar Hill PhD, Phone: [phone] us Carlos Schreiber MD LAB - CHEMISTRY ORDERABLES Final Result Performing Organization Address City/[facility] Co de Phone Number [facility] INSURANCE BILL [address] [place] [address] * LDH BLOOD (04/27/2025 8:53 AM CDT) LDH 167 119 - 226 IU/L [facility] INSURANCE BILL Blood BLOOD SPECIMEN / Unknown 04/27/2025 8:53 AM CDT 04/27/2025 Narrative [facility] INSURANCE BILL - 04/28/2025 7:08 AM CDT Performed at: [facility] - [facility] [address] [place], [place] [id number] Workers Compensation Legal Secretary: Oscar Hill PhD, Phone: [phone] Carlos Schreiber MD LAB - CHEMISTRY ORDERABLES Final Result Performing Organization Address City/[facility]/ZIP Co de Phone Number [facility] INSURANCE BILL [address] [place] [address] * CULTURE STREP B (10/20/2020 4:06 PM PIPE PULLER) Culture Strep B Negative for beta-hemolytic Streptococcus Group B ARELI 10/24/2020 10:35 AM PIPE PULLER [facility] MICROBIOLOGY Microbiology MISCELLANEOUS SAMPLES / Unknown Collection / Unknown 10/20/2020 4:06 PM PIPE PULLER 10/20/2020 4:25 PM PIPE PULLER Alok North MD LAB - MICROBIOLOGY ORDERABLES Final Result Performing Organization Address [facility] de Phone Number [facility] MICROBIOLOGY [address] [place] [address], [facility] [phone] * (ABNORMAL) GTT 1 HR (50G) GESTATIONAL SCREEN (08/14/2020) Glucose Gestational Screen 180(H) <140 mg/dL [facility] Comment: One hour value of > or = 140 mg/dL indicates the need for a diagnostic 75 g dose 2-hour or 100 g dose 3-hour oral glucose tolerance test; patient fasting is required. Test Performed at: [facility] [address] [place] [address] LAURY MEJIA DO,MPH Blood BLOOD SPECIMEN / Unknown 08/14/2020 08/14/2020 1:20 PM PIPE PULLER lAok North MD LAB - CHEMISTRY ORDERABLES Fin al Result Performing Organization Address City/[facility]/ZIP Co de Phone Number [facility] [address] [place] [address] * HIV-1 HIV-2 ANTIBODY + HIV P24 AG PANEL (03/31/2020 3:39 PM CDT) Pathologist [facility] HIV Screen 4th Generation w Reflex NON-REACT [...] purpose. For additional information please refer to http://education.[employer]faq/OKX999 (This link is being provided for informational/ educational purposes only.) The performance of this assay has not been clinically validated in patients less than 2 years old. REPORT COMMENT: FASTING:NO Test Performed at: [facility] [address] [place] [address] LAURY MEJIA DO,MPH Blood BLOOD SPECIMEN / Unknown 03/31/2020 3:39 PM CDT 03/31/2020 3:40 PM CDT Memo Membreno MD LAB - CHEMISTRY ORDERABLES Fi nal Result [facility] [address] [place] [address] * HEPATITIS C ANTIBODY (09/26/2014 12:11 PM PIPE PULLER) [facility] Hepatitis C Virus Antibody 0.2 0.0 - 0.9 s/co ratio [facility] ([facility]) Comment: Negative: < 0.8 Indeterminate: 0.8 - 0.9 Positive: > 0.9 In order to reduce the incidence of a false positive result, the CDC recommends that all s/co ratios between 1.0 and 10.9 be confirmed by a more specific supplemental or PCR testing. [facility] offers HCV Ab w/Reflex to Verification test #[id number]. Blood specimen (specimen) BLOOD SPECIMEN / Unknown 09/26/2014 12:11 PM PIPE PULLER 09/26/2014 6:14 PM PIPE PULLER Narrative [facility] ([facility]) - 10/01/2014 3:21 PM PIPE PULLER Performed at: - [facility] [address] [place], [place] [id number] Workers Compensation Legal Secretary: Franklyn Meyers PhD, Phone: [phone] Carlos Schreiber MD LAB - CHEMISTRY ORDERABLES Edite d Result - Final [facility] ([facility]) [address] [place] [address], [facility] from Last 3 Months or Most Recently Relevant to Health Maintenance [place] [place] [address] [facility] Advance Directives * Full Code (Latest Code Status on File) Date Activated Date Inactivated Comments 10/26/2020 3:59 AM 10/30/2020 2:44 PM * Full Code Date Activated Date Inactivated Comments 10/24/2020 12:31 PM 10/26/2020 3:59 AM Care Teams Die Presser Relationship Specialty Start Date End Date Nathan Ponce DO [address] [place] [address] PCP - General 01/28/20
--- OUTSIDE RECORDS SUMMARY | 2025-07-04 21:05 | XMS_ITS | Encounter Summary ---
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 Not on file Not on file Not on file documented as of this encounter Functional Status * Is person deaf or have serious hearing difficulty? Answer Date of Assessment Author No 10/24/2020 12:32 PM RAILROAD CONDUCTOR Celina Dawn RN * Is person blind or have serious difficulty seeing? Answer Date of Assessment Author No 10/24/2020 12:32 PM RAILROAD CONDUCTOR Celina Dawn RN * Does person have serious difficulty walking/climbing stairs? Answer Date of Assessment Author No 10/24/2020 12:32 PM RAILROAD CONDUCTOR Celina Dawn RN * Does person have difficulty dressing/bathing? Answer Date of Assessment Author No 10/24/2020 12:32 PM RAILROAD CONDUCTOR Celina Dawn RN * Does person have difficulty doing errands alone? Answer Date of Assessment Author No 10/24/2020 12:32 PM RAILROAD CONDUCTOR Celina Dawn, STEFANY documented as of this encounter Mental Status * Does person have difficulty concentrating/remembering/making decisions? Answer Entry Date Author No 10/24/2020 12:32 PM RAILROAD CONDUCTOR Celina Dawn RN documented in this encounter Plan of Treatment Upcoming Encounters Date Type Department Care Team (Late st Contact Info) Description 07/15/2025 2:40 PM RAILROAD CONDUCTOR Office Visit [facility] - Rheumatology [address] [place] [address], [place] [address] Carlos Schreiber MD [address] [place] [address] [address] [place] [address] 03/26/2026 1:30 PM CDT Office Visit [facility] - Ophthalmology [address] [place] [address], [place] [address] Theresa Patricia MD [facility] [place] [address] documented as of this encounter Goals Goal Patient Goal Type Associated Problems [...] one week prior to your last dose documented as of this encounter 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
--- OUTSIDE RECORDS SUMMARY | 2025-07-04 21:05 | XMS_ITS | Encounter Summary ---
Author Organization [facility] Address [address] [place] [address] Care Team Providers Care Gluer And Wedger Name Role Phone Nathan Ponce DO Primary Care Provider [phone] Encounter Details Date Type Department Care Team (Late st Contact Info) Description 10/27/2020 Pharmacist Telephone/Documentatio n [facility] [address] [place] [address] Melani Johnson, calender inspector Social History Tobacco Use Types Packs/Day Years Used Date Smoking Tobacco: Never Smokeless Tobacco: Never Alcohol Use Standard Drinks/Week Comments Yes 0 (1 standard drink = 0.6 oz pur e alcohol) 1-2 drinks/month Overall Financial Resource Strain (CARDIA) Answe r Date Recorded How hard is it for you to pa y for the very basics like food, housing, medical care, and heating? 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 Unable to assess 10/16/2020 4:02 PM INTERVENTIONAL RADIOLOGY TECHNOLOGIST documented as of this encounter Functional Status * Is person deaf or have serious hearing difficulty? Answer Date of Assessment Author No 10/24/2020 12:32 PM INTERVENTIONAL RADIOLOGY TECHNOLOGIST Celina Dawn RN * Is person blind or have serious difficulty seeing? Answer Date of Assessment Author No 10/24/2020 12:32 PM INTERVENTIONAL RADIOLOGY TECHNOLOGIST Celina Dawn RN * Does person have serious difficulty walking/climbing stairs? Answer Date of Assessment Author No 10/24/2020 12:32 PM INTERVENTIONAL RADIOLOGY TECHNOLOGIST Celina Dawn RN * Does person have difficulty dressing/bathing? Answer Date of Assessment Author No 10/24/2020 12:32 PM INTERVENTIONAL RADIOLOGY TECHNOLOGIST Celina Dawn RN * Does person have difficulty doing errands alone? Answer Date of Assessment Author No 10/24/2020 12:32 PM INTERVENTIONAL RADIOLOGY TECHNOLOGIST Celina Dawn RN documented as of this encounter Mental Status * Does person have difficulty concentrating/remembering/making decisions? Answer Entry Date Author No 10/24/2020 12:32 PM Celina Do RN documented in this encounter Miscellaneous Notes * Telephone Encounter - Melani Tineo calender inspector - 10/27/2020 4:54 PM CST This patient would like to have any discharge medications filled and delivered to their room prior to discharge. Please send prescriptions to [facility] or Fax ([phone]) This patient has been added to the Bedside Delivery Patients list. Please access this list for communications regarding the status of the prescriptions. Please call [phone] with any questions. RVENTIONAL RADIOLOGY TECHNOLOGIST documented in this encounter Plan of Treatment Upcoming Encounters Date Type Department Care Team (Late st Contact Info) Description 07/15/2025 2:40 PM INTERVENTIONAL RADIOLOGY TECHNOLOGIST Office Visit [facility] - Rheumatology [address] [place] [address], [place] [phone] Carlos Schreiber MD [address] [place] [address] DIV [place] [address] 03/26/2026 1:30 PM CDT Office Visit [facility] - Ophthalmology [address] [place] [address], [place] [phone] Theresa Patricia MD [address] [place] [address] [place] [phone] documented as of this encounter Goals Goal [...] documented as of this encounter Visit Diagnoses Not on filedocumented in this encounter Care Teams Gluer And Wedger Relationship Specialty Start Date End Date Nahtan Ponce DO [address] [place] [address] PCP - General 01/28/20 documented as of this encounter
--- OUTSIDE RECORDS SUMMARY | 2025-07-04 21:05 | XMS_ITS | Encounter Summary ---
Author Organization [facility] Address [address] [place] [address] Care Team Providers Care Group Account Director Name Role Phone Wicho Plummer MD Primary Care Provider [phone] Nathan Ponce DO Primary Care Provider [phone] Celina Lamb MD Primary Care Provider [phone] Nathan Ponce DO Primary Care Provider [phone] Reason for Visit * Reason Onset Date Comments MEDICATION REFILL 03/27/2018 Encounter Details Date Type Department Care Team (Late st Contact Info) Description 03/27/2018 Refill [facility] [address] [place] [address] Carlos Schreiber MD [address] [phone] MEDICATION REFILL Social History Tobacco Use Types Packs/Day Years Used Date Smoking Tobacco: Never Smokeless Tobacco: Never Alcohol Use Standard Drinks/Week Comments Yes 0 (1 standard drink = 0.6 oz pur e alcohol) 1-2 drinks/month Comments No Sex and Gender Information Value Date Recorded Sex Assigned at Not on file Legal Sex Female 5:36 AM LIFE ENRICHMENT ASSISTANT Gender Identity Not on file Sexual Orientation Not on file documented as of this encounter Miscellaneous Notes * Telephone Encounter - Kathy Mann DO - 03/27/2018 9:32 AM CDT Last labs reviewed. AZA refilled. Kathy Mann DO Rheumatology Fellow [facility] Medicine Pager: [phone] documented in this encounter Plan of Treatment Upcoming Encounters Date Type Department Care Team (Late st Contact Info) Description 07/15/2025 2:40 PM LIFE ENRICHMENT ASSISTANT Office Visit [facility] - Rheumatology [address] [place] [phone] Carlos Schreiber MD [address] [place] [address] [place] [phone] 03/26/2026 1:30 PM CDT Office Visit [facility] - Ophthalmology [address] [place] [address], [place] [phone] Theresa Patricia MD [address] [place] [address] [place] [address] documented as of this encounter [...] on filedocumented in this encounter Care Teams Group Account Director Relationship Specialty Start Date End Date Wicho Plummer MD [address] [place] [phone] PCP - General 12/20/17 09/30/19 Nathan Ponce DO [address] [place] [address] PCP - General 10/01/19 01/21/20 Celina Lamb MD [address] [address] PCP - General Obstetrics and Gynecology 01/22/2012/29 Nathan Ponce DO [address] [place] [address] PCP - General 01/28/20 documented as of this encounter
--- OUTSIDE RECORDS SUMMARY | 2025-07-04 21:05 | XMS_ITS | Data Portability ---
Author Organization [facility] Address [address] [place] [address] Care Team Providers Care Timber Poisoner Name Role Phone KARIN EPPERSON Primary Care Provider Assessment Encounter Date Assessment Date Assessment LastModified by Organization Details LastModified Time 01/13/2021 01/13/2021 Lesion appears benign- cyst of skin reassured, but will monitor for changes no biopsy needed unless changes WWE due, will schedule. [email or web address] Not available 01/13/2021 17:36:24 11/11/2021 11/11/2021 Annual gynecological exam performed. Patient will come back in a year unless there are new symptoms. Not available 11/11/2021 17:02:52 09/15/2022 09/15/2022 discussed COST, plan labs on Tuesday (that's one week s/p +LH strip) with AMH, continue timed intercourse and tracking ovulation f/u pending Not available 09/15/2022 16:00:33 02/13/2025 02/13/2025 Annual gynecological exam performed. Patient will come back in a year unless there are new symptoms. [email or web address] Not available 02/13/2025 10:32:37 Plan of Treatment Reminders Order Date Submit Date Provider Last Modified By Organization Details Last Modified Time Details Appointments None recorded. Lab pap, IG + HR HPV - HPV regardless but if HPV is positive need subtyping 16,18/45 2024 025 [facility] (Lab), [address], [place], [address], 5 18:03:46 17-hydroxyp rogesterone , QN, serum 2022 023 [facility] (Lab), [address], [place], [address], 3 17:03:33 dhea-sulfat e, serum 2022 023 [facility] (Lab), [address], [place], [address], 3 17:03:32 estradiol, serum 2022 023 [facility] (Lab), [address], [place], [address], 3 17:03:30 FSH (follicle-s timulating hormone), serum 2022 023 [facility] (Lab), [address] [place], [address], 3 17:03:32 HbA1c (hemoglobin A1c), blood 2022 023 [facility] (Lab), [address], [place], [address], 3 17:03:29 lh (luteinizin g hormone), serum 2022 023 [facility] (Lab), [address], [place], [address], 3 17:03:32 progesteron e, serum 2022 023 [facility] (Lab), [address] [place], [address], 3 17:03:31 prolactin, serum 2022 023 [facility] (Lab), [address] [place], [address], 3 17:03:31 shbg (sex hormone-bin ding globulin), serum 2022 023 [facility] (Lab), [address] [facility], [place], [address], 3 17:03:30 TSH, serum or plasma 2022 023 [facility] (Lab), [address] [facility], [place], [address], 3 17:03:29 testosteron e free/testos terone total, ratio, serum 2022 023 [facility] (Lab), [address] [facility], [place], [address], 3 17:03:33 anti-jacques ronny hormone (amh), serum 2022 023 [facility] (Lab), [address] [facility], [place], [address], 3 17:03:30 Referral pelvic floor therapy referral [address] [facility], [address] [place] [address], [place], [address], 5 10:40:42 Procedures None recorded. Surgeries None recorded. Imaging MAMMO, screening, digital, bilateral [address] [facility], [address], [place], [address], 5 10:40:47 US, breast, unilateral [address] [facility], [address], [address], [place], [address], 4 11:29:28 Medication Orders estradiol 0.01% (0.1 mg/gram) vaginal cream 2024 025 [id number], [address] [facility], [place], [place], [id number], 12:44:03 Patient TargetsNo targets recorded. Patient InstructionsNo instructions recorded. Reason for Referral Pelvic Floor Therapy Referra l for Pelvic floor dysfunction Referring Physician: Taras Robbins, Gynecology, Encounter Date: 02/13/2025 Results Created Date Observation Date Name Description Value Unit Range Abnormal Flag Note LastModifiedBy Organization Detail LastModifiedTime 11/12/1911/11/2021 IMAGE GUIDE D PAP AND HPV REGAR DLESS image guided Pap, HPV regardless of Pap result SEE RESULT S BELOW CASE REPOR T: Cytol ogy Gynec ologi gregg Repor t Case: [id number] Autho hayes oconnor Provi alexander: Patrick Perez Colle cted: 11/11 1636 RN MDS Order ing Locat ion: [place] [facility] Recei frederick: 11/12 0109 First Scree n: Silvana Arteaga Rescr een: Lizz Fay ed, CT Speci men: Scree rima Pap - Image d, Cervi x STATE MENT OF ADEQU ACY: Satis facto ry for evalu ation Trans forma tion zone compo nent absen t The absen ce of an endoc ervic al compo nent was confi rmed by an addit ional scree ner. FINAL DIAGN OSIS: Negat isael for Intra epith elial Lescharis n or Anish bruce (NIL) . Elect rosette croft d by Lizz Fay ed, CT on 2021 at 7:48 PM ----- ----- ----- ----- ----- ----- ----- ----- ----- ----- ----- ----- ----- ----- ----- ----- ----- ---- HPV RESUL TS: HPV mRNA E6/E7 : No HPV mRNA Detec hira NOTE: This high risk HPV mRNA assay detec ts fourt een high- risk HPV types (16, 18, 31, 33, 35, 39, 45, 51, 52, 56, 58, 59, 66, 68) witho ut diffe renti ation . COMME NT: Note: This speci men was revie wed by a Cytot echno logis t and/o r Patho logis t (as indic ated in this repor t) after evalu ation using the Thinp rep Imagi ng Syste m. CLINI GREGG INFOR MATIO N: Menst rual Statu s: LMP (if appli cable ): Clini gregg Histo ry/Pr eviou s Pap: Type of Neopl nohemi (if appli cable ): Signi fican t Clini gregg Findi ngs: Other Histo ry: Hormo alli (if appli cable ): PAP EDUCA MITESH L NOTE: The Pap Test is a scree rima test with an inher ent false negat isael rate. Liqui d-bas ed sampl ing may decre ase, but will not elimi octavia, false negat isael resul ts. A negat isael resul t does not precl ude the prese nce and/o r devel opmen t of disea se, since the prese nce of abnor mal cells in the sampl e depen ds on the locat ion of the lesio n and sampl ing techn ique. Amy nued regul ar scree rima is the best metho d of cance r preve ntion . If repor hira cytol ogic findi ng do not corre late with physi gregg and/o r histo rical findi ngs, furth er inves tigat ion is recom eliu d, as isaías kennedy nted. Not Available [facility] (Lab) [address], [place], [address], 11/18/2021 20:50:26 09/21/19 23 09/21/2022 HEMOG LOBIN A1C hemoglobin A1C 5.5 % 0-5.6 The Ameri can Diabe domo Assoc iatio n recom mends that a prima ry goal of thera py sixto gupta be a HBA1C of < 7% and that physi cians shoul d reeva luate the treat ment regim en in patie nts with HBA1C value s consi stent ly > 8%. <5.7% Karen l 5.7 - 6.4% Incre ased risk for diabe domo >=6.5 % Diagn ostic of diabe domo <7.0% Goal of thera py >8.0% Actio n elenage sted Not Available [facility] (Lab) [address] [facility], [place], [address], 09/25/2022 17:03:29 09/21/19 23 09/21/2022 TSH, REFLE X FREE T4 TSH 1.40 uIU/m L 0.30-5 .33 Not Available [facility] (Lab) [address] [facility], [place], [address], 09/25/2022 17:03:29 09/21/19 23 09/21/2022 HUMAN SEX HORMO NE BRANDIN NG GLOBU JAMAL sex hormone binding globulin 65.5 nmole s/L 18.2-1 35.5 Not Available [facility] (Lab) [address] [facility], [place], [address], 09/25/2022 17:03:29 09/21/19 23 09/21/2022 ANTIM ULLER RONNY HORMO NE (AMH) anti-mulleri an hormone (amh) 1.88 NG/mL Femal e Refer ence Range s 20-24 years : 1.22 - 11.70 ng/mL 25-29 years : 0.89 - 9.85 ng/mL 30-34 years : 0.58 - 8.13 ng/mL 35-39 years : 0.15 - 7.49 ng/mL 40-44 years : 0.03 - 5.47 ng/mL The follo wing resul ts were obtai maureen with the Elecs ys assay . Resul ts from assay s of other manuf actur es canno t be used inter aranda ably. Not Available [facility] (Lab) [address] [facility], [place], [address], 09/25/2022 17:03:30 09/21/19 23 09/21/2022 ESTRA DIOL estradiol 100.0 pg/mL This assay was perfo rmed using [employer] ratio n reage nts and test kits. Value s obtai maureen with other assay metho ds or kits canno t be used inter [facility] . Femal e Estra diol Range s: Folli cular phase 12.4- 233 pg/mL Ovula tion phase 41.0- 398 pg/mL Lutea l phase 22.3- 341 pg/mL Postm enopa usal< 5-138 pg/mL Healt hy Pregn ant Women 1st Trime ster1 54-32 43 pg/mL 2nd Trime ster1 561-2 1280 pg/mL 3rd Trime ster8 525-> 33779 pg/mL Not Available [facility] (Lab) [address] [place], [address], 09/25/2022 17:03:30 09/21/19 23 09/21/2022 PROGE STERO NE progesterone 14.80 NG/mL This assay was perfo rmed using [employer] ratio n reage nts and test kits. Value s obtai maureen with other assay metho ds or kits canno t be used inter [facility] . Femal e Proge stero ne Range s: Folli cular phase 0.06- 0.89 ng/mL Ovula tion phase 0.12- 12.00 ng/mL Lutea l phase 1.83- 23.90 ng/mL Postm enopa usal< 0.05- 0.13 ng/mL Healt hy Pregn ant Women 1st Trime ster1 1.0-4 4.30 2nd Trime ster2 5.40- 83.30 3rd Trime ster5 8.70- 214.0 0 Not Available [facility] (Lab) [address] [place], [address], 09/25/2022 17:03:31 09/21/19 23 09/21/2022 PROLA CTIN prolactin, total 20.80 NG/mL 4.79-2 3.30 This assay was perfo rmed using [employer] ratio n reage nts and test kits. Value s obtai maureen with other assay metho ds or kits canno t be used inter [facility] . Not Available [facility] (Lab) [address] [facility], [place], [address], 09/25/2022 17:03:31 09/21/19 23 09/21/2022 LH (LUTE NIZIN G HORMO NE) LH 6.6 mIU/m L This assay was perfo rmed using [employer] ratio n reage nts and test kits. Value s obtai maureen with other assay metho ds or kits canno t be used inter [facility] . Femal es Mid-F ollic ular: 2.4-1 2.6 mIU/m L Mid-C ycle: 14.0- 95.6 mIU/m L Mid-L uteal : 1.0-1 1.4 mIU/m L Postm enopa use: 7.7-5 8.5 mIU/m L Not Available [facility] (Lab) [address] [place], [address], 09/25/2022 17:03:32 09/21/19 23 09/21/2022 FSH FSH 2.9 mIU/m L This assay was perfo rmed using [employer] ratio n reage nts and test kits. Value s obtai maureen with other assay metho ds or kits canno t be used inter [facility] . Femal es Folli cular : 3.5-1 2.5 mIU/m L Ovula tion: 4.7-2 1.5 mIU/m L Lutea l: 1.7-7 .7 mIU/m L Postm enopa use: 25.8- 134.8 mIU/m L Not Available [facility] (Lab) [address] [place], [address], 09/25/2022 17:03:32 01/24/20 23 09/21/2022 DHEA SULFA TE DHEA-sulfate 62 ug/dL Femal e Range s Age(y ) Range (ug/d L) 10-15 34-28 0 15-20 65-36 8 20-25 148-4 07 25-35 99-34 0 35-45 61-33 7 45-55 35-25 6 55-65 19-20 5 65-75 9-246 > 75 12-15 4 Not Available [facility] (Lab) [address] [facility], [place], [address], 09/25/2022 17:03:32 09/21/19 23 09/21/2022 TESTO STERO NE, FREE( DIALY SIS) AND TOTAL (LC/M S/MS) testosterone , total 26 NG/dL 2-45 For addit ional fina kirk e refer to http: //[facility] nataliya umana.que stdia gnost ics.c om/fa q/Tot alTes familiate Harman CMSMS (This link is being provi ded for infosandrine wong nal/ educa mitesh l purpo ses only. ) This test was devel oped and its sreene tical perfo rmanc e melissa cteri stics have been deter mined by [facility]. It has not been clear ed or appro frederick by the FDA. This assay has been valid ated pursu ant to the CLIA regul ation s and is used for clini gregg purpo ses. Not Available [facility] (Lab) [address] [facility], [place], [address], 09/25/2022 17:03:33 09/21/19 23 09/21/2022 TESTO STERO NE, FREE( DIALY SIS) AND TOTAL (LC/M S/MS) testosterone , free 2.3 pg/mL 0.1-6. 4 This test was devel oped and its serene tical perfo rmanc e melissa cteri stics have been deter mined by [facility]. It has not been clear ed or appro frederick by the FDA. This assay has been valid ated pursu ant to the CLIA regul ation s and is used for clini gregg purpo ses. Perfo rming Organ izati on Infor matio n: Site ID: [id number] Name: [facility] Addre ss: [id number] [place] [address] Direc tor: Raquel gonzales M.D. Not Available [facility] (Lab) [address] [facility], [place], [address], 09/25/2022 17:03:33 09/21/1909/21/2022 17-OH PROGE STERO NE 17-hydroxypr ogesterone, lc/MS/MS 193 NG/dL Adult Femal e Refer ence Range s for 17-Hy droxy proge stero ne: Pre-M enopa usal Mid Folli cular : 23-10 2 ng/dL Pre-M enopa usal Surge : 67-34 9 ng/dL Pre-M enopa usal Mid Lutea l: 139-4 31 ng/dL Postm enopa usal Phase : < or = 45 ng/dL Pregn roberto: First Trime ster: 78-45 7 ng/dL Secon d Trime ster: 90-35 7 ng/dL Third Trime ster: 144-5 78 ng/dL This test was devel oped and its serene tical perfo rmanc e melissa cteri stics have been deter mined by [facility] [place] [facility] . It has not been clear ed or appro frederick by FDA. This assay has been valid ated pursu ant to the CLIA regul ation s and is used for clini gregg purpo ses. Perfo rming Organ izati on Infor matio n: Site ID: [id number] Name: [facility] [place] , Addre ss: [id number] [place] [address] Direc tor: Anastasiia torrez MD,Ph D,KARLA Not Available [facility] (Lab) [address] [facility], [place], [address], 09/25/2022 17:03:33 02/14/2002/13/2025 IMAGE GUIDE D PAP AND HPV REGAR DLESS image guided Pap, HPV regardless of Pap result SEE RESULT S BELOW CASE REPOR T: Cytol ogy Gynec ologi gregg Repor t Case: [id number] Provi alexander: Dermo dy, Taras , ANP, TOOL CRIB LEAD Colle cted: 02/13 1106 Order ing Locat ion: [place] Patho logy Recei frederick: 02/14 0222 First Scree n: Silvana Arteaga Speci men: Christian sebastiang Pap - Image d, Cervi x STATE MENT OF ADEQU ACY: Satis facto ry for evalu ation Trans forma tion zone compo nent prese nt ----- ----- ----- ----- ----- ----- ----- ----- ----- ----- ----- ----- ----- ----- ----- ----- ----- ---- FINAL DIAGN OSIS: Negat isael for Intra epith elial Darrius umana or Anish bruce (NIL) . Elect rosette gupta by Silvana Arteaga on 2024 at 1700 CDT ----- ----- ----- ----- ----- ----- ----- ----- ----- ----- ----- ----- ----- ----- ----- ----- ----- ---- HPV RESUL TS: HPV mRNA E6/E7 : No HPV mRNA Detec hira NOTE: This high risk HPV mRNA assay detec ts fourt een high- risk HPV types (16, 18, 31, 33, 35, 39, 45, 51, 52, 56, 58, 59, 66, 68) witho ut diffe renti ation . COMME NT: This speci men was revie wed by a Cytot echno logis t and/o r Patho logis t (as indic ated in this repor t) after evalu ation using the Thinp rep Imagi ng Syste m. CLINI GREGG INFOR MATIO N: Menst rual Statu s: LMP (if appli cable ): Clini gregg Histo ry/Pr eviou s Pap: Type of Neopl nohemi (if appli cable ): Signi fican t Clini gregg Findi ngs: Other Histo ry: Hormo alli (if appli cable ): PAP EDUCA MITESH L NOTE: The Pap Test is a scree rima test with an inher ent false negat isael rate. Liqui d-bas ed sampl ing may decre ase, but will not elimi octavia, false negat isael resul ts. A negat isael resul t does not precl ude the prese nce and/o r devel opmen t of disea se, since the prese nce of abnor mal cells in the sampl e depen ds on the locat ion of the lesio n and sampl ing techn ique. Amy nued regul ar scree rima is the best metho d of cance r preve ntion . If repor hira cytol ogic findi ng do not corre late with physi gregg and/o r histo rical findi ngs, furth er inves tigat ion is recom eliu d, as clini jalil kennedy nted. Not Available [facility] (Lab) [address] [facility], [place], [address], 02/14/2025 18:03:46 09/28/19 24 09/22/2023 MAMMO , diagn ostic , digit al, bilat eral No observ ation record ed. [facility] [address], [place], [address], 09/28/2023 18:16:02 Result Notes None recorded. Problems Name Problem SNOMED Code Status Onset Date Resolution Date Notes Provider Name and Address Organization Details Recorded Time Atypical squamous cells of undeterm ined signific ance on cervical Papanico laou smear [id number] Completed 201011/03/2021 Papanico laou smear of cervix with atypical squamous cells of undeterm ined signific ance (ASC-US) ;Recorde d Elsewher e: No Locat ion: [facility] S ource: EHR Planner Scheduler wong: N Practi ce ID: [id number] Russell lable Time: 03:00:00 PM Kindra Dwaine lau, [facility] 2 15:40:42 Abnormal cervical Papanico laou smear [id number] Completed 201001/13/2021 Other abnormal papanico laou smear of cervix and cervical HPV;Almas rded Elsewher e: No Locat ion: [facility] S ource: EHR Planner Scheduler wong: N Practi ce ID: [id number] Russell lable Time: 03:00:00 PM Marialuisa Pena MD [address], [place], [address], [facility] 17:22:20 Verruca vulgaris [id number] Completed 201001/13/2021 Other specifie d viral warts;Re corded Elsewher e: No Locat ion: [facility] S ource: EHR Planner Scheduler wong: N Practi ce ID: [id number] Russell lable Time: 03:00:00 PM Marialuisa Pena MD [address], [place], [address], [facility] 17:22:05 Speciali zed medical examinat ion Completed 201201/13/2021 Gynecolo gical Examinat ion;Almas rded Elsewher e: No Locat ion: [facility] S ource: EHR Planner Scheduler wong: N Practi ce ID: [id number] Russell lable Time: 03:30:00 PM Marialuisa Pena MD [address], [place], [address], [facility] 17:21:57 Screenin g for malignan t neoplasm of cervix Completed 201201/13/2021 Screenin g for malignan t neoplasm s of the cervix;R ecorded Elsewher e: No Locat ion: [facility] S ource: EHR Planner Scheduler wong: N Practi ce ID: [id number] Russell lable Time: 03:30:00 PM Marialuisa Pena MD [address], [place], [address], [facility] 1 17:21:48 Vaginiti s and vulvovag initis Completed 201301/13/2021 Vaginiti s;Record ed Elsewher e: No Locat ion: [facility] S ource: EHR Planner Scheduler wong: N Practi ce ID: [id number] Russell lable Time: 04:15:00 PM Marialuisa Pena MD [address], [place], [address], [facility] 17:22:02 Disorder of sebaceou s gland [id number] Completed 201301/13/2021 Other specifie d diseases of sebaceou s glands;R ecorded Elsewher e: No [facility]: EHR Planner Scheduler wong: Y Practi ce ID: [id number] Russell lable Time: 04:00:00 PM Marialuisa Pena MD [address], [place], [address], [facility] 17:22:11 Obesity [id number] Completed 201401/13/2021 Obesity; Recorded Elsewher e: No [facility] S ource: EHR Planner Scheduler wong: N Practi ce ID: [id number] Russell lable Time: 03:15:00 PM Marialuisa Pena MD [address], [place], [address], [facility] 1 17:21:36 Pregnanc y test negative [id number] Completed 201501/13/2021 Encounte r for pregnanc y test, result negative ;Recorde d Elsewher e: No [facility] S ource: EHR Planner Scheduler wong: N Practi ce ID: [id number] Russell lable Time: 03:30:00 PM Marialuisa Pena MD [address], [place], [address], [facility] 1 17:21:42 Insertio n of intraute rine contrace ptive device Completed 201501/13/2021 INSERTIO N OF IUD;Almas rded Elsewher e: No Locat ion: [facility] S ource: EHR Planner Scheduler wong: N Practi ce ID: [id number] Russell lable Time: 11:00:00 AM Marialuisa Pena MD [address], [place], [address], [facility] 1 17:21:34 Removal of intraute rine device Completed 201501/13/2021 REMOVAL OF IUD;Almas rded Elsewher e: No Locat ion: [facility] S ource: EHR Planner Scheduler wong: N Practi ce ID: [id number] Russell lable Time: 04:15:00 PM Marialuisa Pena MD [address], [place], [address], [facility] 17:21:[address] Concept Completed 201501/13/2021 Encntr for general adult medical exam w/o abnormal findings ;Recorde d Elsewher e: No Locat ion: [facility] S ource: EHR Planner Scheduler wong: N Practi ce ID: [id number] Russell lable Time: 11:30:00 AM Marialuisa Pena MD [address], [place], [address], [facility] 1 17:21:53 Vaginola bial hernia Completed 201601/13/2021 Other specifie d noninfla mmatory disorder s of vagina;R ecorded Elsewher e: No [facility]at [facility] S ource: EHR Planner Scheduler wong: N Practi ce ID: [id number] Russell lable Time: 02:45:00 PM Marialuisa Pena MD [address], [place], [address], [facility] 17:22:08 Infectio n screenin g Completed 201601/13/2021 Encounte r for screenin g for oth infec/pa rastc diseases ;Recorde d Elsewher e: No Locat ion: [facility] bonner [facility] S ource: EHR Planner Scheduler wong: N Practi ce ID: [id number] Russell lable Time: 02:45:00 PM Marialuisa Pena MD [address], [place], [address], [facility] 17:21:29 Acute vaginiti s [id number] Completed 201601/13/2021 Acute vaginiti s;Record ed Elsewher e: No Locat ion: [facility] bonner [facility] S ource: EHR Planner Scheduler wong: N Ariati ce ID: [id number] Russell lable Time: 02:45:00 PM Marialuisa Pena MD [address], [place], [address], [facility] 17:22:17 Syphilis test finding [id number] Completed 201601/13/2021 Encntr screen for infectio ns w sexl mode of transmis s;Record ed Elsewher e: No Locat ion: [facility]sa bonner [facility] S ource: EHR Planner Scheduler wong: N Practi ce ID: [id number] Russell lable Time: 02:45:00 PM Marialuisa Pena MD [address], [place], [address], [facility] 17:21:59 Disorder of perineum Completed 201701/13/2021 Anogenit al warts;Re corded Elsewher e: No Locat ion: [facility]sa bonner [facility] S ource: EHR Planner Scheduler wong: N Practi ce ID: [id number] Russell lable Time: 04:15:00 PM Marialuisa Pena MD [address], [place], [address], [facility] 17:22:14 Finding of menstrua l bleeding Completed 201701/13/2021 Menorrha crow;Almas rded Elsewher e: No Locat ion: [facility] S ource: EHR Planner Scheduler wong: N Ariati ce ID: [id number] Russell lable Time: 05:00:00 PM Marialuisa Pena MD [address], [place], [address], [facility] 17:21:26 Body mass index 30+ - obesity [id number] Completed 201711/03/2021 Body mass index (BMI) 31.0-31. 9, adult;Re corded Elsewher e: No Locat ion: [facility] S ource: EHR Planner Scheduler wong: N Ariati ce ID: [id number] Russell lable Time: 05:00:00 PM 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 17:21:55 Sexual function painful Completed 201801/13/2021 Unspecif ied dyspareu leticia;Almas rded Elsewher e: No [facility] S ource: EHR Planner Scheduler wong: N Ariati ce ID: [id number] Russell lable Time: 08:30:00 AM Marialuisa Pena MD [address], [place], [address], [facility] 17:21:50 Pelvic and perineal pain [id number] Completed 201801/13/2021 Pelvic and perineal pain;Rec orded Elsewher e: No Locat ion: Mahsa bonner [facility] S ource: EHR Planner Scheduler wong: N Practi ce ID: [id number] Russell lable Time: 03:45:00 PM Marialuisa Pena MD [address], [place], [address], [facility] 1 17:21:40 Problem Notes None recorded. Procedures Surgical History Date Name Laterality Status Provider Name and Address Organization Details Recorded Time 2 Date of Last Pap Smear completed [facility] 09/15/2022 14:40:56 1 delivery completed [facility] 01/13/2021 17:20:41 3 Colposcopy completed [facility] 11/11/2021 16:23:03 1 procedure on knee completed [facility] 01/13/2021 17:21:04 2 procedure on lower leg completed [facility] 01/13/2021 17:29:52 procedure on shoulder completed [facility] 01/13/2021 17:21:[address] [facility] 09/15/2022 14:38:02 Imaging Results None recorded. Procedure Notes None recorded. Medical Equipment None Reported. Allergies Allergen ID Allergen Name Allergen Category Reaction Reaction Severity Criticality Documentation Date Start Date Code Code System Note Provider Name and Address Organization Details Recorded Time 61280 codeine medicatio n Not available Not available Not available 08/15/2020 7840 RxNorm Comme nt: [facility]at [facility]; Not Available [facility] 14:20:46 13490 wheat gluten extract food Not available Not available Not available 09/15/2022 70297 81 RxNorm Alivia Slaughter [facility] 3 14:37:44 Medications Name Sig Start Date Stop Date Status Note LastModified by Organization Details LastModified Time cyclobenz aprine 10 mg tablet 01/13 completed Not Available Not Available Not Available furosemid e 40 mg tablet active Not Available Not Available Not Available Mirena 21 mcg/24 hr (up to 8 years) 52 mg intrauter ine device 12/17 completed Prescrib ed Elsewher e: Yes [facility] odify By: jose howardunter DateTime : 11/17/19 16 11:00:00 AM Not Available Not Available Not Available furosemid e 10 mg/mL injection solution inject 2 millilit er by intraven ous route every day slowly 01/13 completed Prescrib ed Elsewher e: Yes [facility] By: chinyere Encounte r DateTime : 06/14/20 18 05:00:00 PM Not Available Not Available Not Available metformin 500 mg tablet TAKE 1 TABLET BY MOUTH TWICE DAILY WITH MEALS 09/15 completed Not Available Not Available Not Available hydrochlo rothiazid e (bulk) 100 % powder 06/14 completed Prescrib ed Elsewher e: Yes [facility]oca [facility] odify By: chinyere Encounte r DateTime : 01/22/20 15 03:45:00 PM Not Available Not Available Not Available nabumeton e 750 mg tablet take 1 tablet by oral route 2 times every day 11/16 completed Prescrib ed Elsewher e: No [facility] odify By: jose Bonner ncounter DateTime : 09/20/19 15 03:15:00 PM Not Available Not Available Not Available Demerol 50 mg/mL injection solution inject 1 millilit er by intramus cular route every 4 hours as needed 11/08 completed Prescrib ed Elsewher e: Yes Loca tion: Mahsa bonner [facility] odify By: luis alberto howarduntleno DateTime : 08/05/20 11 03:15:00 PM Not Available Not Available Not Available glyburide 2.5 mg tablet 09/15 completed Not Available Not Available Not Available spironola ctone 100 mg tablet active Not Available Not Available No t Available Diflucan 150 mg tablet take 1 tablet by oral route once 06/14 completed Prescrib ed Elsewher e: No Locat ion: Mahsa bonner [facility] odify By: chinyere Encounte r DateTime : 06/22/20 17 02:45:00 PM Not Available Not Available Not Available azathiopr ine 50 mg tablet TAKE 1 TABLET BY MOUTH TWICE DAILY WITH FOOD active Not Available Not Available No t Available liothyron ine 5 mcg tablet active Not Available Not Available Not Available acetamino phen 500 mg tablet 01/13 completed Not Available Not Available Not Available Metrogel Vaginal 0.75 % (37.5 mg/5 gram) insert 1 applicat orful by vaginal route every day at bedtime 11/16 completed Prescrib ed Elsewher e: No [facility] odify By: jose howardunter DateTime : 10/27/19 16 03:30:00 PM Not Available Not Available Not Available potassium chloride ER 20 mEq tablet,ex tended release(p art/cryst ) 01/13 completed Not Available Not Available Not Available Valium 2 mg tablet take 1 tablet by oral route 3 times every day 11/08 completed Prescrib ed Elsewher e: Yes Loca tion: Mahsa bonner [facility] odify By: luis alberto howardunter DateTime : 08/05/20 11 03:15:00 PM Not Available Not Available Not Available Flagyl 500 mg tablet take 1 tablet by oral route every 12 hours 06/22 completed Prescrib ed Elsewher e: No Locat ion: Mahsa [facility] odify By: chinyere Encounte r DateTime : 04/08/20 17 12:03:29 PM Not Available Not Available Not Available benzonata te 100 mg capsule 08/30 completed Not Available Not Available Not Available Spironola ctone/HCT Z 25-25 mg tablet 09/15 completed Not Available Not Available Not Available neomycin- polymyxin -dexameth 3.5 mg/mL-10, 000 unit/mL-0 .1% eye drops 08/30 completed Not Available Not Available Not Available Prednison e Intensol 5 mg/mL oral concentra te take 1 millilit er by oral route 4 times every day 11/16 completed Prescrib ed Elsewher e: Yes Loca tion: [facility] odify By: amines howardunter DateTime : 01/22/20 15 03:45:00 PM Not Available Not Available Not Available Condylox 0.5 % topical gel apply by topical route 2 times every day for 3 days then stop for 4 days.(re peat 7day cycle until no visible wart tissue/m ax of four cycles) 10/05 completed Prescrib ed Elsewher e: No Locat ion: [facility] odify By: kpanyik Encoundeny deluca DateTime : 10/03/19 18 04:15:00 PM Not Available Not Available Not Available liothyron ine 50 mcg tablet take 1 tablet by oral route every day 01/13 completed Prescrib ed Elsewher e: Yes Loca tion: [facility] odify By: moon howardunter DateTime : 03/31/20 16 11:30:00 AM Not Available Not Available Not Available Myleran 2 mg tablet take 1 tablet by oral route every day 03/31 completed Prescrib ed Elsewher e: Yes Loca tion: [facility] odify By: moon Bonner ncounter DateTime : 11/17/19 16 11:00:00 AM Not Available Not Available Not Available Synthroid 50 mcg tablet take 1 tablet by oral route every day active Not Available Not Available No t Available aspirin 81 mg chewable tablet 01/13 completed Not Available Not Available Not Available ibuprofen 600 mg tablet 01/13 completed Not Available Not Available Not Available polyethyl horacio glycol 3350 17 gram/dose oral powder 01/13 completed Not Available Not Available Not Available estradiol 0.01% (0.1 mg/gram) vaginal cream active Not Available Not Available Not Available letrozole 2.5 mg tablet TAKE 2 TABLETS BY MOUTH DAILY ON DAYS 3 THROUGH 7 08/30 completed Not Available Not Available Not Available methylpre dnisolone 4 mg tablets in a dose pack FOLLOW PACKAGE DIRECTIO NS 08/30 completed Not Available Not Available Not Available albuterol sulfate HFA 90 mcg/actua tion aerosol inhaler INHALE 1 TO 2 PUFFS BY MOUTH EVERY 4 HOURS NEEDED FOR WHEEZING 09/15 completed Not Available Not Available Not Available clobetaso l 0.05 % scalp solution APPLY 2 TO 3 DROPS TO RASH AREA ON EAR TWICE DAILY FOR 4 WEEKS THEN TAKE 2 WEEK BREAK BEFORE RESTARTI NG 08/30 completed Not Available Not Available Not Available cefdinir 300 mg capsule TAKE 1 CAPSULE BY MOUTH EVERY 12 HOURS FOR 10 DAYS 02/13 completed Not Available Not Available Not Available metformin ER 500 mg tablet,ex tended release 24 hr take 1 tablet by oral route every day with the evening meal active Not Available Not Available No t Available Ambien 5 mg tablet take 2 tablet by oral route every day at bedtime 01/13 completed Prescrib ed Elsewher e: Yes Loca tion: Mahsa bonner [facility] odify By: chinyere deluca DateTime : 06/14/20 18 05:00:00 PM Not Available Not Available Not Available spironola ctone 50 mg tablet 09/15 completed Not Available Not Available Not Available amoxicill in 875 mg-potass ium clavulana te 125 mg tablet TAKE 1 TABLET BY MOUTH EVERY 12 HOURS 02/13 completed Not Available Not Available Not Available Stanback Headache Powder 650 mg oral packet 11/08 completed Prescrib ed Elsewher e: Yes Loca tion: Mahsa [facility] odify By: luis alberto terrazas DateTime : 08/05/20 11 03:15:00 PM Not Available Not Available Not Available oxycodone 5 mg tablet 01/13 completed Not Available Not Available Not Available moxifloxa stephanie 0.5 % eye drops INSTILL 1 DROP IN BOTH EYES THREE TIMES DAILY FOR 1 WEEK 08/30 completed Not Available Not Available Not Available Azasan 75 mg tablet take 1 tablet by oral route every day 06/22 completed Prescrib ed Elsewher e: Yes Loca tion: Mahsa bonner [facility] odify By: chinyere deluca DateTime : 03/31/20 16 11:30:00 AM Not Available Not Available Not Available BD Ultra-Fin e Mini Pen Needle 31 gauge x 11/11 USE DIRECTED 01/13 completed Not Available Not Available Not Available furosemid e 09/15 completed Not Available Not Available Not Available azathiopr ine 08/30 completed Not Available Not Available Not Available liothyron ine 11/11 completed Not Available Not Available Not Available 11/11 completed Not Available Not Available Not Available BD Ultra-Fin e Short Pen Needle 31 gauge x 01/11 completed Not Available Not Available Not Available FeroSul 325 mg (65 mg iron) tablet 01/13 completed Not Available Not Available Not Available Antibioti c(neomy-b acit-poly m) 3.5 mg-400 unit-5,00 0 unit/gram top oint 11/08 completed Prescrib ed Elsewher e: Yes Loca tion: Mahsa bonner [facility] odify By: luis alberto terrazas DateTime : 08/05/20 11 03:15:00 PM Not Available Not Available Not Available Gianvi (28) 3 mg-0.02 mg tablet TAKE ONE TABLET BY MOUTH EVERY DAY 09/20 completed Prescrib ed Elsewher e: No Locat ion: Mahsa bonner [facility] odify By: florian shaw DateTime : 01/19/20 14 03:30:00 PM Not Available Not Available Not Available OneTouch Verio test strips USE 1 STRIP TO CHECK GLUCOSE FIVE TIMES DAILY 01/13 completed Not Available Not Available Not Available Vitamin-D + Gilbert-3 350 mg-400 mg-1,000 unit capsule 11/16 completed Prescrib ed Elsewher e: Yes Loca tion: Mahsa bonner [facility] odify By: jose terrazas DateTime : 01/22/20 15 03:45:00 PM Not Available Not Available Not Available Zorvolex 18 mg capsule take 1 capsule by oral route 3 times every day 06/14 completed Prescrib ed Elsewher e: Yes [facility] odify By: chinyere Holland r DateTime : 11/17/19 11:00:00 AM Not Available Not Available Not Available Vitamins Plus Low Iron 27 mg iron-1 mg tablet 08/30 completed Not Available Not Available Not Available Levemir FlexTouch U-100 Insulin 100 unit/mL (3 mL) subcutane ous pen INJECT 10 UNITS SUBCUTAN EOUSLY AT BEDTIME 01/13 completed Not Available Not Available Not Available Trulicity 1.5 mg/0.5 mL subcutane ous pen injector 09/15 completed Not Available Not Available Not Available Trulicity 0.75 mg/0.5 mL subcutane ous pen injector inject 0.5 millilit er by subcutan eous route every week in the abdomen, thigh, or upper arm rotating injectio n sites 01/13 completed Prescrib ed Elsewher e: Yes [facility] odify By: chinyere Holland r DateTime : 06/14/20 05:00:00 PM Not Available Not Available Not Available CaroSpir 25 mg/5 mL oral suspensio n take 7.5 millilit er by oral route every day 01/13 completed Prescrib ed Elsewher e: Yes [facility]oca [facility] odify By: chinyere Holland r DateTime : 06/14/20 05:00:00 PM Not Available Not Available Not Available OneTouch Delica Plus Lancet 30 gauge USE ONE LANCET FIVE TIMES DAILY 01/13 completed Not Available Not Available Not Available semagluti de (weight loss) active Not Available Not Available Not Available Vitals Date Recorded Body height Body mass index (BMI) Body weight Systolic And Diastolic Provider Name and Address Organization Details Last Updated DateTime 08/30/2023 167.01 cm 37.9 kg/m2 001719.02 g 115/89 mm[Hg] [place] [place] [facility] 08/30/2023 16:43:08 Date Recorded Body height Body mass index (BMI) Body weight Systolic And Diastolic Systolic And Diastolic Provider Name and Address Organization Details Last Updated DateTime 09/15/2022 167.01 cm 38.9 kg/m2 576892.5 8 g 138/93 mm[Hg] 139/86 mm[Hg] Alivia Slaughter [facility] 14:37:39 Date Recorded Body height Body mass index (BMI) Body weight Systolic And Diastolic Provider Name and Address Organization Details Last Updated DateTime 11/11/2021 167.01 cm 36.7 kg/m2 352075.16 g 128/76 mm[Hg] Kindra Isidro [facility] 11/11/2021 17:04:30 Date Recorded Body height Body mass index (BMI) Body weight Systolic And Diastolic Provider Name and Address Organization Details Last Updated DateTime 01/13/2021 172.72 cm 36.9 kg/m2 961790.95 g 122/84 mm[Hg] Elina Galan [facility] 01/13/2021 17:11:42 Date Recorded Body height Body mass index (BMI) Body weight Systolic And Diastolic Provider Name and Address Organization Details Last Updated DateTime 02/13/2025 167.01 cm 28.1 kg/m2 54223.48 g 119/81 mm[Hg] Rama Jaylin [facility] 02/13/2025 10:41:00 Social History Question Answer Notes LastModified by Organizat ion Details LastModified Time Tobacco Smoking Status Never Smoker Alivia Slaughter [facility] 09/15/2022 14:37:58 Do You Have An Advance Directive? No Information n ot available 11/11/2021 How Many Years Have You Consumed Alcohol? 15 Information not available 09/15/2022 Are You Blind Or Do You Have Difficulty Seeing? No Information n ot available 11/11/2021 What Is Your Level Of Caffeine Consumption? Moderate Information not available 11/11/2021 How Much Tobacco Do You Chew? None Information not available 11/11/2021 In The 14 Days Before Symptom Onset, Have You Had Close Contact With A Laboratory-confirm ed COVID-19 While That Case Was Ill? No Information n ot available 11/11/2021 In The 14 Days Before Symptom Onset, Have You Had Close Contact With A Person Who Is Under Investigation For COVID-19 While That Person Was Ill? No Information not available 11/11/2021 Have You Been To An Area Known To Be High Risk For COVID-19? No Information not available 11/11/2021 Are You Deaf Or Do You Have Serious Difficulty Hearing? No Information not available 11/11/2021 What Type Of Diet Are You Following? GLUTENFREE Information n ot available 09/15/2022 What Is The Highest Grade Or Level Of School You Have Completed Or The Highest Degree You Have Received? [id number] Information not available 11/11/2021 Are There Any Guns Present In Your Home? Yes Information not available 11/11/2021 Have You Ever Been Counseled For Unhealthy Alcohol Use? No Information not available 09/15/2022 Do You Use Protection During Sex? No Information not available 09/15/2022 Do You Use Your Seat Belt Or Car Seat Routinely? Yes Information not available 11/11/2021 Do You Have Smoke And Carbon Monoxide Detectors In Your Home? Yes Information not available 11/11/2021 How Much Tobacco Do You Smoke? No Information not available 11/11/2021 Do You Use Sunscreen Routinely? No Information not available 11/11/2021 Have You Used IV Drugs? No Information not available 11/11/2021 Do You Have Difficulty Walking Or Climbing Stairs? No Information not available 09/15/2022 Sex: Unknown Functional Status Question Answer Note LastModified by Organizat ion Details LastModified Time Do you use any illicit or recreational drugs? No Information not available 01/13/2021 What is your level of alcohol consumption? Occasional Information not available 01/13/2021 Are you able to walk independently without assistance or assistive devices? YESWOREST Information not available 11/11/2021 Are you able to care for yourself independently? 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 No Information not available 09/15/2022 What is your exercise level? None Information not available 09/15/2022 Mental Status Question Answer Note LastModified by Organization D etails LastModified Time Do you feel stressed (tense, restless, nervous, or anxious, or unable to sleep at night)? [id number] Information not available 09/15/2022 Family History Relationship Description Onset Age of this Age Resolved Age Notes LastModified by Organization Details LastModified Time Father Hypertensive disorder Not available 2021 16:25:46 Maternal Grandfather Heart disease Not available 2021 16:25:54 Maternal Grandmother Pulmonary embolism [email or web address] Not available 01/27 10:31:32 Maternal Grandmother Heart disease Not available 2021 16:26:11 Maternal Grandmother Hypertensive disorder Not available 2021 16:26:21 Mother Hypertensive disorder Not available 2021 16:26:27 Mother Disorder of thyroid gland Not available 2021 16:26:45 Medical History Condition Response Allergies (Food, seasonal, environmental ) N Other Y Breast Cancer N Drug/Latex Allergies/Reactions N Blood Transfusion N Dermatologic Disorders N Lung Disease N Defects or Inherited Disease N Breast Problem N Gestational Diabetes N Hematologic disorders N Anesthesia Complications N History of STI N Deep Vein Thrombosis N Polycystic ovary syndrome N Anxiety Disorder N Autoimmune disease Y Arthritis N Infertility N Polyps N Acid Reflux (GERD) N History of abnormal pap N Cancer N Stroke N Varicosities N Neurologic/Epilepsy N Endometriosis N High Cholesterol N Headaches N Fibromyalgia N Kidney Disease N Heart Problems N Kidney or Bladder Problems N Thyroid Problems Y GI Problems Y Eating Disorder N Anemia N Art (IVF or FET) N Psychiatric Illness N Ovarian Cancer N Diabetes N Pulmonary (TB, Asthma) N Hepatitis/Liver Disease N No Past Medical History N Eczema N Urinary Tract Infection N Abuse/Domestic Violence N Asthma N Trauma/Violence N Depression/ depression N Heart Disease N Pre-Eclampsia N Hypertension N Osteoporosis N Thrombophilias N Gynecological History Statement/Question Response Abnormal Pap Y Flow Heavy Date of Last Mammogram Date of LMP 01/23/2025 N On BCP's at Conception? N STIs/STDs N Was last menstrual period normal Y HPV Vaccine N Colposcopy 03/29/2013 Duration of Flow (days) 5 Current Control Method None Age at First Child 35 Are cycles usually normal Y Frequency of Cycle (Q days) 26 Sexually Active? Y None Menses Monthly Y Age of first menstrual cycle 10 Date of Last Pap Smear 11/11/2021 Sexual Problems? N LMP Definite N Obstetrics History GPAL:G 1 P 1 0 0 1 Type Value Full Term 1 Living 1 Total 1 Past Encounters Encounter ID Performer Location Encounter Start Date Encounter Closed Date Diagnosis/Indication Diagnosis SNOMED-CT Code Diagnosis ICD10 Code Diagnosis IMO Codes Diagnosis Note [id number] Marialuisa Pena MD [place] [address] [address] 01/13/2021 16:53:27 01/13/2021 21:16:05 Lesion of vulva [id number] N90.89 [id number] [facility] [address] [address] 11/11/2021 16:50:03 11/11/2021 18:36:27 Gynecologic examination [id number] Z01.419 Take Calcium with Vitamin D 1200mg daily if not receiving in daily diet. It is strongly advised to have an annual flu shot and up can obtain at most pharmacies . If you have not had a TDap shot in the last 10 years you should obtain one as well. Discussed with patient & provided with informatio n regarding Gardisil vaccine to prevent the 4 strains for HPV that cause cervical cancer if under age 26. Encourage safe sexual practices, to use condoms and limit partners if not already in a monogamous relationsh ip. Do monthly self breast exams. Have mammogram yearly or every other year depending on family history. BRCA testing is now available for patients with strong genetic history of female cancer. If interested contact the office. Engage in daily exercise of low impact aerobic exercise 45-60 minutes 4-5 times weekly. Avoid tobacco and illicit drugs as well as using moderation with alcohol intake less than 1-2 8 oz beverages daily. This lifestyle behavior pattern will lead to less health conditions and longer life span. If BMI greater than 25 weight watchers or dietary consult advised. Patient received above instructio ns, and questions have been answered. If you have any questions please call or respond to this email. Patient was made aware of the patient portal and may obtain a paper copy of today's plan if desired. Pap/hpv sentMammo n/aGenetic screen discussedS TD screen declinedRe commended see her Derm for skin tag removal in rectal area (ext) and bumps on her arms. [id number] [facility] [address],[place] [address] 09/15/2022 14:20:37 09/15/2022 17:01:21 Trying to conceive [id number] Z31.9 [id number] Sydni Sims [facility] [address],[facility] [place] [address] 08/30/2023 16:34:33 08/30/2023 17:15:36 Lump in upper outer quadrant of right breast [id number] 80893 N63.11 Today we agreed to further evaluation with breast US due to exam/subje ctive complaints ; and this area has been here for >1mo. US orderedWil l call to schedule Time spent in visit is a total of 21 mins with at least 50% of visit consisting of counseling and review of plan of care. [id number] Rashaun Rutherford MD [place] [address],[facility] [address] 02/13/2025 10:31:13 02/13/2025 14:02:26 Gynecologic examination [id number] Z01.419 [id number] Annual gynecologi gregg exam performed. Patient will come back in a year unless there are new symptoms. Suggest Calcium with Vitamin D if not eating in diet. Patient advised to get annual flu shot. Recommend yearly physicals and perform monthly breast exams. Genetic testing is available for patients with family history of cancer. Engage in safe sexual practices, use condoms. Encouraged to have daily exercise. Avoid tobacco and illicit drugs, moderation of alcohol. If BMI greater than 25 dietary consult advised. If you have any questions please call or email. mammogram- ordered, pt to schedule Pap smear- Pap w/ HPV collected laboratory evaluation - PCP STI testing - declined Screening mammography 24 [id number] Z12.31 [id number] Pelvic yamilka or dysfunction 945056452 M62.89 [id number] Discussed exam findings. Reviewed treatment options with the patient.Re commended pelvic floor therapy referral. Referral sent.Patie nt will report worsening or new symptoms.D iscussed estradiol 0.01% vaginal cream to help with dryness of vaginal tissue -Risks/melissa efits/AEs reviewed.I nsert one gram vaginally nightly x 2 weeks, then insert twice weekly for maintenanc e. Menorrhagia [id number] N9 2.0 [id number] Today we discussed multiple options for menorrhagi a including: IUD's, Patch, Ring, Pills, Nexplanon, Lysteda; Endometria l ablation (requires MD consult). We discussed if any are contraindi cated with her current health Hx.Patient interested in consult with MD to further discuss endometria l ablation. Patient declines hormonal control as she states several methods, including the IUD, exacerbate d her autoimmune symptoms in the past.Consu lt with MD to be scheduled. Diastasis recti [id number] M62.08 1998 Discussed diastasis recti in depth, including etiology, symptoms, and treatment options.Re commended core strengthen ing exercises and pelvic floor therapy.Di scussed referral to general surgery if non-surgic al methods do not improve the condition. Patient to consider. Health Concerns Section Related Observation LastModified by Organization Detai ls LastModified Time None Recorded Concern Status LastModified by Organization Details LastModified Time None Recorded Advance Directives Directive N: Payers Insurance Date Sequence Insurance Name Policy Number Policy Valdes Covered Member ID Valdes Member ID Guarantor Name 03/11/2025 1 [facility] [id number] Angeline Brewer [id number] Angeline Brewer Notes Date Note Type Note Provider Name and Address Organization Details Recorded Time 1 text/html Pt is a 35yo here complaining of black mole on left labia majora. No symptoms. It was not there prior to her . Delivered Sep at [facility] with [facility]. At pp visit they noticed mole. , condoms. Additional concerns: sexually active: not yet contraception:n Last annual exam:05/2019 Marialuisa Pena MD [address], [place], [address], [facility] 01/13/2021 17:36:32 2 text/html Annual GYNReported by PatientHistoryFor history, patient reportsno gynecologic complaints.Genitourinary symptomsFor menstrual cycle, patient reportsnormal menses. For urinary symptoms, patient reportsno hematuriaandno incontinence. For vulva, patient reportsno genital lesion. For vagina, patient reportsnormal vaginal discharge.Breast symptomsFor breast, patient reportsno breast pain,no breast lump, andno nipple discharge.ContraceptionFo r current contraception, patient reportssatisfied with current contraceptionandcondoms.E ndocrine symptomsFor sexual complaints, patient reportsno sexual complaints,no pain during intercourse, andnormal libido. For menopausal symptoms, patient reportsno menopausal symptomsandnormal vaginal lubrication.Psychological symptomsFor psychological symptoms, patient reportsno depression,no anxiety, andno pmdd.Preventative measuresFor preventive measures, patient reportsencourage self breast examination,encourage regular exercise,encourage no tobacco use, andencourage regular mammograms starting age 40. Sydni Sims, [facility]- [address], [place], [address], [facility] 11/11/2021 17:23:01 3 text/html ROS as noted in the HPI Trying to conceive x 6 monthsAMAsame FOBlast child 03/19 by sectionsees MFM as soon as due to myositis, ibs, celiacs diseasecurrently taking pnv, metformin, liothyronine, synthroid, azathioprine Alice Christianson CNM [address], [place], [address], [facility] 09/15/2022 16:02:28 4 text/html Breast MassReported by PatientHPIFor location, patient reportsright. For onset/timing, patient reports2-4 weeksandgradual. For quality, patient reportslocalized,firm, andfixed. For severity, patient reportsmild. For duration, patient reportsconstant. For context, patient reportsperforms breast self examination. For associated symptoms, patient reportsno fever,no skin redness,no nipple discharge,no breast swelling,no arm pain,no arm swelling, andno chest pain.Breast ROS: Neg Nipple discharge Neg Skin discoloration or texture changes + Breast Lump/Mass Neg Family Hx of breast cancer/other cancers Neg Tenderness/pain Neg Trauma to breast Neg Underwire or ill fitting bras Neg notable assymetry of breastsROS as noted in the HPI Sydni Sims, [facility] [address], [place], [address], [facility] 08/30/2023 17:13:43 5 text/html Annual GYNReported by PatientGenitourinary symptomsFor menstrual cycle, patient reportsnormal menses. For urinary symptoms, patient reportsno hematuriaandno incontinence. For vulva, patient reportsno genital lesion. For vagina, patient reportsnormal vaginal discharge.Breast symptomsFor breast, patient reportsno breast pain,no breast lump, andno nipple discharge.ContraceptionFo r current contraception, patient reportsbirth control not practiced.Endocrine symptomsFor sexual complaints, patient reportsno sexual complaints,no pain during intercourse, andnormal libido. For menopausal symptoms, patient reportsno menopausal symptomsandnormal vaginal lubrication.Psychological symptomsFor psychological symptoms, patient reportsno depression,no anxiety, andno pmdd.Preventative measuresFor preventive measures, patient reportsencourage self breast examination,encourage regular exercise,encourage no tobacco use, andencourage regular mammograms starting age 40. 40 y/o female presents for annual exam.Patient c/o feeling pressure and tissue at vaginal opening since childbirth 4 years ago.Patient states that she is unable to insert a tampon due to discomfort. Patient states that she can feel the tissue when and standing and sitting.Patient states that the tissue at the vaginal opening feels dry.Patient reports worsening stress incontinence and nocturia over the past year.Patient also notes that her diastasis recti has not improved since childbirth.Neg pain of abd/pelvis/flankNeg GI sx'sNeg N/V/F/C/DNeg Vag d/c, odor, irritation, itching TARAS ROBBINS NP [address], [place], [address], [place] [facility] 02/13/2025 13:58:23 OBGyn Episode Ob Episode Information Episode Created Date Number of Fetuses Patient Bloodtype Patient rh Status Prepregnancy Weight lbs Domestic Partner Domestic Partner Phone Father Name Teletype Adjuster Status 01/14/20 21 1 CLOSED Fetus Data First Name Last Name Admitted to NICU Weight (g) Sex Living Outcome Pediatric Complications Fetus ID Race Codes Race Delivery Type M Full Term [id number] Primary José Miguel Calculation Initial José Miguel Date Initial Exam Date Initial Exam Provider Initial Ultrasound Date Last Menstrual Period Date Ultra Sound Weeks Gestation 0 Eighteen To Twenty Week José Miguel Update Ultra Sound Date Fundal Height At Umbil Quickening Date Ultra Sound Latest Weeks Gestation Final José Miguel Confirmed By Final José Miguel Confirmed Date Final José Miguel Date Ultra Sound Latest Days Gestation 0 0 Menstrual History Last Menstrual Date Menses Monthly On Bcp Conception Prior Menses Frequency Hcg Plus Date Menarche Onset Age Delivery Information Delivery Date Delivery Type Labor Anesthesia Weeks Gestation Incision Type Labor Labor Length Hrs Delivered By Post Complications Tubal Sterilization Discharge Date Comments 1 37 Discharge Information Feeding Method Contraceptive Method Maternal HG B and HCT Levels
--- OUTSIDE RECORDS SUMMARY | 2025-07-04 21:05 | XMS_ITS | Encounter Summary ---
Author Organization [facility] Address [address] [place] [address] Care Team Providers Care Pharmacist Hospital Name Role Phone Wicho Plummer MD Primary Care Provider [phone] Nathan Ponce DO Primary Care Provider [phone] Celina Lamb MD Primary Care Provider [phone] Nathan Ponce DO Primary Care Provider [phone] Reason for Visit * Reason Onset Date Comments MEDICATION REFILL 06/01/2018 Encounter Details Date Type Department Care Team (Late st Contact Info) Description 06/01/2018 Refill [facility] [address] [place] [address] Kathy Mann DO [address] [place] [id number] MEDICATION REFILL Social History Tobacco Use Types Packs/Day Years Used Date Smoking Tobacco: Never Smokeless Tobacco: Never Alcohol Use Standard Drinks/Week Comments Yes 0 (1 standard drink = 0.6 oz pur e alcohol) 1-2 drinks/month Comments No Sex and Gender Information Value Date Recorded Sex Assigned at Not on file Legal 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 Office Visit [facility] - Rheumatology [address] [place] [phone] Carlos Schreiber MD [address] [place] [address] [place] [phone] 03/26/2026 1:30 PM CDT Office Visit [facility] - Ophthalmology [address] [place] [address], [place] [phone] Theresa Patricia MD [address] [place] [address] [place] [address] documented as of this encounter [...] on filedocumented in this encounter Care Teams Pharmacist Hospital Relationship Specialty Start Date End Date Wicho Plummer MD [address] [place] [phone] PCP - General 12/20/17 09/30/19 Nathan Ponce DO [address] [place] [address] PCP - General 10/01/19 01/21/20 Celina Lamb MD [address] [address] PCP - General Obstetrics and Gynecology 01/22/2012/29 Nathan Ponce DO [address] [place] [address] PCP - General 01/28/20 documented as of this encounter
--- OUTSIDE RECORDS SUMMARY | 2025-07-04 21:05 | XMS_ITS | Clinical Summary ---
Author Organization [facility] [facility] Address [address] [place] [phone] Care Team Providers Care Junior Project Manager Name Role Phone Nathan Ponce DO Primary Care Provider [phone] Allergies Active Allergy Reactions Criticality Noted Date Comments Codeine Nausea & Vomiting Low 07/27/2023 Gluten Other (See comments) Low 02/26/2020 Autoimmune response Medications azaTHIOprine (IMURAN) 50 mg tablet 07/24/2023 Active furosemide (LASIX) 40 mg tablet 06/10/2023 Active Synthroid 50 mcg tablet 07/18/2023 Active liothyronine (CYTOMEL) 5 mcg tablet 05/16/2023 Active metFORMIN XR (GLUCOPHAGE XR) 500 mg 24 hr tablet 06/26/2023 Active spironolactone (ALDACTONE) 100 mg tablet 07/04/2023 Active Active Problems No known active problems Immunizations Immunization Administration Dates Next Due DTP 12/17/1987, 4,1983,06/03,1983 Hep A, Adult 12/07/2021,11/05/2019 Hep B Vaccine 12/07/2021,11/05/2019 Influenza, Quadrivalent, Rec ombinant, Egg Free, Preservative Free, Intramuscular 05/10/2022 Influenza, Quadrivalent, Spl it, Preservative Free, Intramuscular 05/29/2020,06/18/2019,06/05/2018 Influenza, Trivalent, Preser vative Free, Intramuscular 06/09/2017,05/31/2016 Kathya (J&J) SARS-CoV-2 Vaccination 12/06/2020 MMR 03/12/1992,05/05/1984 OPV 12/17/1987, 4,1983,06/03,1983 Pfizer SARS-CoV-2 Monovalent Vaccination (12+ Yrs) OSHEA-READY TO USE 11/25/2021 Td, adsorbed 01/23/1997 Tdap 08/28/2020,11/05/2019 Social History Tobacco Use Types Packs/Day Years Used Date Smoking Tobacco: Never Assessed Comments Unknown Sex and Gender Information Value Date Recorded Sex Assigned at Not on file 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[employer] Gender Identity Not on file Sexual Orientation Not on file Last Filed Vital Signs Vital Sign Reading Time Taken Comments Blood Pressure 122/70 01/10/2024 8:29 AM CDT Pulse 100 01/10/2024 8:29 AM CDT Temperature 37.6 C (99.6 F) 01/10/2024 8:29 AM CDT Respiratory Rate 18 01/10/2024 8:29 AM CDT Oxygen Saturation 99% 01/10/2024 8:29 AM CDT Inhaled Oxygen Concentration - - Weight 99.8 kg (220 lb) 01/10/2024 8:29 AM CDT Height 172.7 cm (5' 8) 01/10/2024 8:29 AM CDT Body Mass Index 33.45 01/10/2024 8:29 AM CDT Plan of Treatment Health Maintenance Due Date Last Done Comments Breast Cancer Screening-Mammogram 1983 Cervical Cancer Screening 1983 Depression Screening 1983 Hepatitis C Screening 1983 Varicella Vaccines (1 of 2 - 13+ 2-dose series) 02/02/1996 Regular Well Visit/Exam 18-64 2001 Pneumococcal vaccine <65 (1 of 2 - PCV) 2002 Zoster Vaccine (1 of 2) 2002 HPV Vaccines (1 - 3-dose SCD M series) 2010 Covid-19 Vaccine (3 - 2024-2 6 season) 2025 11/25/2021, 12/06/2020 Influenza Vaccine (#1) 2025 2, 05/29/2020, 06/18/2019, Additional history exists DTaP/Tdap/Td Vaccine (8 - Td or Tdap) 08/28/2030 08/28/2020, 11/05/2019, 01/23/1997, Additional history exists Hepatitis B Screening Completed 12/07/2021, 020 Insurance [facility] CHO[facility] Care Teams Junior Project Manager Relationship Specialty Start Date End Date Nathan Ponce DO PCP - General Internal Medicine 07/27/23
== END 2025-07-04 16:11 | disposition home or self-care (01) ==
LOC: ANHFOHIMG 16:14
PROVIDERS: PCP Nurse Practitioner; Visit Provider Student in an Organized Health Care Education/Training Program
DX: Z12.31 Encounter for screening mammogram for malignant neoplasm of breast (principal); R92.8 Other abnormal and inconclusive findings on diagnostic imaging of breast
CPT/HCPCS: 77063; 77067